=== PATIENT | female | born 1995 | race Caucasian/White ===

== ENCOUNTER 2019-12-22 21:26 | Emergency (ER) | payer OTHER ==
[~2019-12-22] VITALS: Ht 172.7 cm; Wt 121.7 kg
--- NOTE | 2019-12-22 22:35 | RAD ---
AP portable chest radiograph 12/22/2019 Clinical History: Chest pain. An AP erect portable digital radiograph of the chest was obtained. The cardiac and mediastinal silhouettes are within normal limits in size and configuration. No pulmonary infiltrate is seen. No pleural effusion or pneumothorax is noted. The osseous structures are grossly intact. IMPRESSION: Negative study. Electronically signed by: Clark Harper MD (12/22/2019 10:32 PM) [id number]
[2019-12-22 22:45] LABS: BASO # 0.1 x10^3/uL (0.0-0.2); BASO % 1 % (0-3); EOS # 0.1 x10^3/uL (0.0-0.7); EOS % 2 % (0-3); HEMATOCRIT 38.2 % (36.0-47.0); HEMOGLOBIN 12.2 g/dL (12.0-15.5); LYMPH # 3.2 x10^3/uL (1.0-4.8); LYMPH % 38 % (24-48); MEAN CORPUSCULAR HEMOGLOBIN 30 pg (25-35); MEAN CORPUSCULAR HGB CONC 32 g/dL (31-37); MEAN CORPUSCULAR VOLUME 93 fL (79-100); MONO # 0.5 x10^3/uL (0.0-1.1); MONO % 6 % (0-9); NEUT # 4.5 x10^3uL (1.8-7.7); NEUT % 54 % (31-73); PLATELET COUNT 311 x10^3/uL (140-400); RED BLOOD COUNT 4.12 x10^6/uL (3.50-5.40); RED CELL DISTRIBUTION WIDTH 13.9 % (11.5-14.5); WHITE BLOOD COUNT 8.4 x10^3/uL (4.0-11.0)
[2019-12-22 22:48] LABS: CREATININE 0.8 mg/dL (0.6-1.0); GFR 88.9; POTASSIUM 3.6 mmol/L (3.5-5.1)
[2019-12-22 22:58] LABS: ALBUMIN 3.7 g/dL (3.4-5.0); TOTAL BILIRUBIN 0.4 mg/dL (0.2-1.0); TOTAL PROTEIN 7.4 g/dL (6.4-8.2)
--- NOTE | 2019-12-22 22:58 | PHYS DOC ---
Adult General Chief Complaint Chief Complaint: CHEST PAIN [facility] HPI Patient is a 24-year-old female who presents to the emergency room complaining of chest pain for several months with several other symptoms. A year ago patient was diagnosed with pericarditis. She has not followed up with anybody for this in quite some time. She has been having bloating, burping, and the metallic taste in the back of her mouth. She is also been having chest burning and pressure. Chest pain is constant and unchanged. She is currently going through divorce and has a lot of stress. She states she is unable to see her primary care doctor due to insurance issues. She denies any sweating, nausea, s hortness of breath, cough, URI symptoms. Review of Systems Review of Systems Complete ROS is negative unless otherwise documented in HPI Physical Exam Physical Exam General: Awake, alert, NAD. Well Nourished, well hydrated. Cooperative HEENT: Atraumatic, EOMI, PERRL, airway patent, moist oral mucosa Neck: Supple, trachea midline Respiratory: CTA bilaterally, normal effort, no wheezing/crackles CV: RRR, no murmur, cap refill <2 GI: Soft, nondistended, nontender, no masses MSK: No obvious deformities Skin: Warm, dry, intact Neuro: A&O x3, speech NL, sensory and motor grossly intact, no focal deficits Psych: Normal affect, normal mood, not suicidal or homicidal Current Patient Data Lab Results Laboratory Tests Test 12/22/19 21:48 12/22/19 22:09 White Blood Count 8.4 x10^3/uL (4.0-11.0) Red Blood Count 4.12 x10^6/uL (3.50-5.40) Hemoglobin 12.2 g/dL (12.0-15.5) Hematocrit 38.2 % (36.0-47.0) Mean Corpuscular Volume 93 fL (79-100) Mean Corpuscular Hemoglobin 30 pg (25-35) Mean Corpuscular Hemoglobin Concent 32 g/dL (31-37) Red Cell Distribution Width 13.9 % (11.5-14.5) Platelet Count 311 x10^3/uL (140-400) Neutrophils (%) (Auto) 54 % (31-73) Lymphocytes (%) (Auto) 38 % (24-48) Monocytes (%) (Auto) 6 % (0-9) Eosinophils (%) (Auto) 2 % (0-3) Basophils (%) (Auto) 1 % (0-3) Neutrophils # (Auto) 4.5 x10^3uL (1.8-7.7) Lymphocytes # (Auto) 3.2 x10^3/uL (1.0-4.8) Monocytes # (Auto) 0.5 x10^3/uL (0.0-1.1) Eosinophils # (Auto) 0.1 x10^3/uL (0.0-0.7) Basophils # (Auto) 0.1 x10^3/uL (0.0-0.2) Sodium Level 141 mmol/L (136-145) Potassium Level 3.6 mmol/L (3.5-5.1) Chloride Level 105 mmol/L (98-107) Carbon Dioxide Level 28 mmol/L (21-32) Anion Gap 8 (6-14) Blood Urea Nitrogen 11 mg/dL (7-20) Creatinine 0.8 mg/dL (0.6-1.0) Estimated GFR (Cockcroft-Gault) 88.9 BUN/Creatinine Ratio 14 (6-20) Glucose Level 90 mg/dL (70-99) Calcium Level 9.0 mg/dL (8.5-10.1) Total Bilirubin Pending Aspartate Amino Transferase (AST) Pending Alanine Aminotransferase (ALT) Pending Alkaline Phosphatase Pending NU-Tnw-N-Type Natriuretic Peptide Pending Total Protein Pending Albumin Pending Albumin/Globulin Ratio Pending POC Urine HCG, Qualitative hcg negative (Negative) EKG EKG [] Radiology/Procedures Radiology/Procedures [] Heart Score Risk Factors: Risk Factors: DM, Current or recent (<one month) smoker, HTN, HLP, family history of CAD, obesity. Risk Scores: Risk Factors: DM, Current or recent (<one month) smoker, HTN, HLP, family history of CAD, obesity. Course & Med Decision Making Course & Med Decision Making Pertinent Labs and Imaging studies reviewed. (See chart for details) Patient is a 24-year-old female presents to the emergency room with several months of chest pain, bloating, burping. Patient's abdominal symptoms are consistent with reflux. We will start her on treatment for this. Work-up was ordered to evaluate for any cardiac pathology and was normal. Patient does not have any signs of a STEMI at this time. She does not have any signs of pericarditis. I have discussed with her that she can follow-up with a program clinician however her insurance will not allow her to do this at this time. She does not need a delta troponin as this is been ongoing for several months. She is generally well-appearing. Patient's test results and vitals while in the ED were fully reviewed and discussed with the patient. Patient is stable and at this time does not need admission to the hospital. We have discussed strict return precautions and the importance of following up with their Primary Care Physician. Patient stated understanding and was given an opportunity to ask any questions. Patient is in agreement with plan. Dragon Disclaimer Anitra Disclaimer This electronic medical record was generated, in whole or in part, using a voice recognition dictation system. Departure Departure: Impression: Primary Impression: Chest pain Additional Impression: GERD (gastroesophageal reflux disease) Disposition: 01 DC HOME SELF CARE/HOMELESS Condition: STABLE Referrals: PCP,NO (PCP) Patient Instructions: Chest Pain (Nonspecific), Diet for Gastroesophageal Reflux Disease, Adult, Gastroesophageal Reflux Disease, Adult Scripts Sucralfate (CARAFATE) 1 Gm Tablet 1 TAB PO QID for GERD for 10 Days, #40 TAB 0 Refills Prov: MAXIMO MCMULLEN MD 12/22/19 Esomeprazole Magnesium (NEXIUM CAPSULE) 40 Mg Capsule. 1 CAP PO DAILY for reflux, #30 CAP 5 Refills Prov: MAXIMO MCMULLEN MD 12/22/19 Problem Qualifiers MAXIMO MCMULLEN MD Dec 22, 2019 22:58
[2019-12-22] MEDS ORDERED: ESOM40CA PO (23:14)
[2019-12-22] MEDS ORDERED: SUCR1TAB35 PO (23:14)
[2019-12-23 00:15] VITALS: BP 148/81
--- NOTE | 2019-12-23 04:31 | EKG ---
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
== END 2019-12-22 23:25 | disposition home or self-care (01) ==
LOC: ER 21:26
DX: K21.9 Gastro-esophageal reflux disease without esophagitis (principal); R07.89 Other chest pain
CPT/HCPCS: 36415; 71045; 80053; 81025; 83880; 84484; 85025; 93005; 99285

== ENCOUNTER 2020-03-06 09:37 | Emergency (ER) | payer OTHER ==
[~2020-03-06] VITALS: Ht 172.7 cm; Wt 114.0 kg
[~2020-03-06 09:37] MED LIST: ESOM40CA PO; SUCR1TAB35 PO
--- NOTE | 2020-03-06 10:34 | PHYS DOC ---
Past History Past Medical History: MRSA Additional Past Medical Histor: pericarditis Past Surgical History: No Surgical History Alcohol Use: None General Adult EDM: Chief Complaint: CHEST PAIN HPI: HPI: Patient is a 24-year-old female coming in for intermittent chest pain since yesterday. Patient describes the pain as "the hand of God" reaching into her chest and squeezing her heart. Symptoms last for a couple of minutes and occur every few hours. Patient states that started yesterday while she was at work and was not connected to any p.o. intake, movement, positioning. Says the pain is worse with palpation. Radiates to the back but not to her arms or neck. Has not had this kind of pain in the past. Had a history of GERD and pericarditis within the last year, but states that this does not feel the same as her GERD but is similar to the beginning of her pericarditis. Denies any recent illness, cough, shortness of breath. Had some nausea but no vomiting. Denies any constipation or diarrhea. Has a slight headache was present when she woke up, has a history of similar headaches. Patient states that she took her gastritis medicine for 1 month but discontinued them and adapted lifestyle changes and has not had problems with GERD since. States she is starting her primary care provider and was diagnosed with low vitamin levels and has been started on iron and vitamins. Denies any lower extremity edema or changes in urination. Has not take anything for pain Review of Systems: Review of Systems: All other systems within normal limits except for as noted in the HPI Allergies: Allergies: Allergies Coded Allergies Type Severity Reaction Last Updated Verified No Known Allergies Allergy Unknown 03/06/20 Yes Physical Exam: PE: Constitutional: Well developed, well nourished, no acute distress, non-toxic appearance. [] HENT: Normocephalic, atraumatic, bilateral external ears normal, nose normal. [] Eyes: PERRLA, conjunctiva normal, no discharge. [] Neck: No rigidity, supple, no stridor. [] Cardiovascular: Regular rate and rhythm, brisk cap refill, no murmur or gallop [] Lungs & Thorax: Non labored symmetric respirations, no tachypnea or respiratory distress, breath sounds clear to auscultation bilaterally, tenderness to palpation over sternum [] Abdomen: Soft, nondistended, epigastric tenderness, negative Hernandes sign, no rebound or guarding. Skin: Warm, dry, no erythema, no rash. [] Back: Unremarkable Extremities: No deformities, range of motion grossly intact, no lower extremity edema [] Neurologic: Alert and oriented X 3, no focal deficits noted. [] Psychologic: Affect normal, judgement normal, mood normal. [] Current Patient Data: Vital Signs: Vital Signs Date Time Temp Pulse Resp B/P (MAP) Pulse Ox O2 Delivery O2 Flow Rate FiO2 03/06/20 09:40 98.3 74 16 134/85 (101) 99 Room Air EKG: EKG: Sinus rhythm, normal axis, no ectopy, normal intervals, no ST elevation or depression, T wave inversions in inferior leads [] Radiology/Procedures: Radiology/Procedures: XR CHEST 2V History: Reason: chest pain / Spl. Instructions: / History: Comparison: December 22, 2019 Findings: No consolidation or pleural effusion. Normal heart size. No pneumothorax. Impression: 1. No acute cardiopulmonary process.[] Heart Score: HEART Score for Chest Pain: HEART Score for Chest Pain Response (Comments) Value History Moderately Suspicious 1 ECG Nonspecific Repolarizatio 1 Age < 45 0 Risk Factors No Risk Factors 0 Troponin < Normal Limit 0 Total 2 Risk Factors: Risk Factors: DM, Current or recent (<one month) smoker, HTN, HLP, family history of CAD, obesity. Risk Scores: Score 0 - 3: 2.5% MACE over next 6 weeks - Discharge Home Score 4 - 6: 20.3% MACE over next 6 weeks - Admit for Clinical Observation Score 7 - 10: 72.7% MACE over next 6 weeks - Early Invasive Strategies Course & Med Decision Making: Course & Med Decision Making Pertinent Labs and Imaging studies reviewed. (See chart for details) Discussed possible etiology with patient including esophageal spasm, early pericarditis, musculoskeletal pain among others. Due to slight elevation of CRP will give patient course of steroids in case this is a early pericarditis, no elevation in troponin and no EKG changes consistent with pericarditis at this time. [] Esteron Disclaimer: Anitra Disclaimer: This electronic medical record was generated, in whole or in part, using a voice recognition dictation system. Departure Departure: Impression: Primary Impression: Chest pain in adult Disposition: ADMITTED INPT THIS HOSP Condition: STABLE Referrals: TICKNOR,ALEXIA L [employer] (PCP) Patient Instructions: Chest Pain (Nonspecific) Scripts Prednisone (PREDNISONE) 50 Mg Tablet 1 TAB PO DAILY for steroid for 4 Days, #4 TAB You received this medication in the emergency room today. You will starting your next dose tomorrow. Prov: EBONI ABDUL MD 03/06/20 EBONI ABDUL MD Mar 06, 2020 10:34
--- NOTE | 2020-03-06 10:41 | RAD ---
XR CHEST 2V History: Reason: chest pain / Spl. Instructions: / History: Comparison: December 22, 2019 Findings: No consolidation or pleural effusion. Normal heart size. No pneumothorax. Impression: 1. No acute cardiopulmonary process. Electronically signed by: Jim Welch DO (03/06/2020 10:39 AM) [id number]
[2020-03-06 10:44] LABS: BASO % 1 % (0-3); EOS # 0.1 x10^3/uL (0.0-0.7); EOS % 2 % (0-3); HEMATOCRIT 39.4 % (36.0-47.0); HEMOGLOBIN 12.8 g/dL (12.0-15.5); LYMPH # 1.6 x10^3/uL (1.0-4.8); LYMPH % 28 % (24-48); MEAN CORPUSCULAR HEMOGLOBIN 30 pg (25-35); MEAN CORPUSCULAR HGB CONC 33 g/dL (31-37); MEAN CORPUSCULAR VOLUME 93 fL (79-100); MONO # 0.3 x10^3/uL (0.0-1.1); MONO % 6 % (0-9); NEUT # 3.6 x10^3uL (1.8-7.7); NEUT % 63 % (31-73); PLATELET COUNT 269 x10^3/uL (140-400); RED BLOOD COUNT 4.26 x10^6/uL (3.50-5.40); RED CELL DISTRIBUTION WIDTH 13.8 % (11.5-14.5); WHITE BLOOD COUNT 5.7 x10^3/uL (4.0-11.0)
[2020-03-06 10:50] LABS: CALCIUM 9.2 mg/dL (8.5-10.1); CREATININE 0.7 mg/dL (0.6-1.0); GFR 103.7; POTASSIUM 3.9 mmol/L (3.5-5.1)
[2020-03-06 10:56] LABS: ALBUMIN 3.6 g/dL (3.4-5.0); ALBUMIN/GLOBULIN RATIO 0.9 (1.0-1.7); C REACTIVE PROTEIN 9.3 mg/L (0-3.3); MAGNESIUM 1.8 mg/dL (1.8-2.4); TOTAL BILIRUBIN 1.2 mg/dL (0.2-1.0); TOTAL PROTEIN 7.4 g/dL (6.4-8.2)
[2020-03-06 11:40] LABS: BILIRUBIN,URINE NEG (NEG); CLARITY,URINE CLEAR; COLOR,URINE STRAW; GLUCOSE,URINE NEG (NEG); NITRITE,URINE NEG (NEG); UROBILINOGEN,URINE 0.2 mg/dL (0.2 mg/dL)
[2020-03-06 11:44] LABS: BACTERIA,URINE FEW /HPF (0-FEW); RBC,URINE RARE /HPF (0-2); SQUAMOUS EPITHELIAL CELL,UR FEW /LPF; WBC,URINE RARE /HPF (0-4)
[2020-03-06] MEDS ORDERED: PRED50TA PO (12:24)
[2020-03-06] MEDS ORDERED: predniSONE 10 MG TABLET ONE (12:28)
[2020-03-06 12:30] VITALS: BP 123/80
[2020-03-06] MEDS ORDERED: predniSONE 10 MG TABLET PO ONE (12:30)
--- NOTE | 2020-03-06 15:13 | EKG ---
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
== END 2020-03-06 12:45 | disposition admitted as inpatient to this hospital (09) ==
LOC: ER 09:37
DX: R07.89 Other chest pain (principal); R51.9 Headache, unspecified; R10.13 Epigastric pain; K21.9 Gastro-esophageal reflux disease without esophagitis; Z86.14 Personal history of Methicillin resistant Staphylococcus aureus infection
CPT/HCPCS: 36415; 71046; 80053; 81001; 81025; 83690; 83735; 84484; 85025; 85379; 86140; 93005; 99285; J7512

== ENCOUNTER 2020-04-03 22:53 | Emergency (ER) | payer OTHER ==
[~2020-04-03] VITALS: Ht 167.6 cm; Wt 113.2 kg
[2020-04-03 22:53] VITALS: BP 149/93
[~2020-04-03 22:53] MED LIST changes: +PRED50TA PO
[2020-04-03] MEDS ORDERED: ONDANSETRON ODT 4 MG TAB.RAPDIS ONE (22:59)
--- NOTE | 2020-04-03 23:14 | PHYS DOC ---
Past History Past Medical History: MRSA Additional Past Medical Histor: pericarditis Past Surgical History: No Surgical History Alcohol Use: None Adult General Chief Complaint Chief Complaint: NAUSEA/VOMITING/DIARRHEA HPI HPI Patient is an otherwise healthy 24-year-old female, in the who presents with a chief complaint of nausea vomiting. States that 2 days ago she saw her primary care physician and was diagnosed with a urinary tract infection and started on nitrofurantoin. States that since then it appears to have upset her stomach and today shortly after taking a dose she had nonbloody nonbilious vomiting. States that her last dose was about 5 hours ago and has not thrown up in about 4 hours. States she otherwise feels well now. Denies any headache, fevers, chest pain, shortness of breath, abdominal pain, dysuria, hematuria, diarrhea or blood in the stool. Denies any alcohol or drug use. Denies any recent travel, illnesses, fevers or known ill contacts. Review of Systems Review of Systems Review of systems otherwise unremarkable except noted in HPI Current Medications Current Medications Current Medications Medications (Trade) Dose Ordered Sig/Lakia Start Time Stop Time Status Last Admin Dose Admin Ondansetron HCl (Zofran Odt) 4 mg STK-MED ONCE 04/03/20 22:59 04/03/20 22:59 DC Allergies Allergies Allergies Coded Allergies Type Severity Reaction Last Updated Verified No Known Allergies Allergy Unknown 03/06/20 Yes Physical Exam Physical Exam Constitutional: Well developed, well nourished, no acute distress, non-toxic appearance. [] HENT: Normocephalic, atraumatic, bilateral external ears normal, oropharynx moist, no oral exudates, nose normal. [] Eyes: conjunctiva normal, no discharge. [] Cardiovascular:Heart rate regular rhythm, no murmur [] Lungs & Thorax: Bilateral breath sounds clear to auscultation [] Abdomen: soft, no tenderness, no masses, no pulsatile masses. [] Skin: Warm, dry, no erythema, no rash. [] Back: no CVA tenderness. [] Extremities: No tenderness, no cyanosis, no clubbing, ROM intact, no edema. [] Neurologic: Alert and oriented X 3, normal motor function, normal sensory function, no focal deficits noted. [] Psychologic: Affect normal, judgement normal, mood normal. [] EKG EKG [] Radiology/Procedures Radiology/Procedures [] Heart Score Risk Factors: Risk Factors: DM, Current or recent (<one month) smoker, HTN, HLP, family history of CAD, obesity. Risk Scores: Risk Factors: DM, Current or recent (<one month) smoker, HTN, HLP, family history of CAD, obesity. Course & Med Decision Making Course & Med Decision Making Patient is a 24-year-old female who presents with nausea and vomiting after st arting a course of nitrofurantoin for a urinary tract infection Vital signs not concerning. Physical exam noted above. Advised patient to cease nitrofurantoin and switch to cephalexin. Urinalysis not concerning, but most likely due to coverage for nitrofurantoin. Advised to continue Keflex as prescribed. Advised to call primary care physician first thing in the morning to set up a follow-up visit for urinalysis. Gave strict return precautions to the ED. Patient grateful, verbalized understanding and agreed with plan of discharge. [] Dragon Disclaimer Dragon Disclaimer This electronic medical record was generated, in whole or in part, using a voice recognition dictation system. Departure Departure: Impression: Primary Impression: UTI (urinary tract infection) Additional Impression: Nausea & vomiting Disposition: 01 DC HOME SELF CARE/HOMELESS Condition: GOOD Referrals: BETHANIE PUENTE-OZ (PCP) Patient Instructions: Nausea and Vomiting, [id number], Urinary Tract Infection Additional Instructions: Please read all the attached information. Please continue your new antibiotic as prescribed. Please cease taking the oral antibiotic. Please try to eat and drink normally. Please call your primary care physician first thing tomorrow to update on your ED visit and change in antibiotics. Please set up a follow-up visit with your primary care physician as soon as you can. Please come back to the ED with new or concerning symptoms. Scripts Cephalexin (CEPHALEXIN) 500 Mg Capsule 1 CAP PO TID for uti for 5 Days, #15 CAP Prov: CT PALOMINO MD 04/03/[address] PALOMINO MD Apr 03, 2020 23:14
[2020-04-03] MEDS ORDERED: ONDANSETRON ODT 4 MG TAB.RAPDIS PO ONE (23:15)
[2020-04-03 23:29] LABS: BILIRUBIN,URINE NEG (NEG); CLARITY,URINE CLEAR; COLOR,URINE YELLOW; GLUCOSE,URINE NEG (NEG); NITRITE,URINE NEG (NEG); RBC,URINE 0 /HPF (0-2); UROBILINOGEN,URINE 0.2 mg/dL (0.2 mg/dL)
[2020-04-03 23:30] LABS: BACTERIA,URINE 0 /HPF (0-FEW); SQUAMOUS EPITHELIAL CELL,UR FEW /LPF; WBC,URINE RARE /HPF (0-4)
[2020-04-03] MEDS ORDERED: CEPH500C PO (23:41)
[2020-04-03] MEDS ORDERED: CEPHALEXIN 250 MG CAPSULE PO ONE (23:45)
[2020-04-03] MEDS ORDERED: CEPHALEXIN 250 MG CAPSULE ONE (23:46)
== END 2020-04-03 23:48 | disposition home or self-care (01) ==
LOC: ER 22:53
DX: N39.0 Urinary tract infection, site not specified (principal); R11.2 Nausea with vomiting, unspecified; Z86.14 Personal history of Methicillin resistant Staphylococcus aureus infection
CPT/HCPCS: 81001; 81025; 99283; Q0162

== ENCOUNTER 2020-04-07 13:09 | Emergency (ER) | payer OTHER ==
[~2020-04-07] VITALS: Ht 167.6 cm; Wt 113.2 kg
[~2020-04-07 13:09] MED LIST changes: +CEPH500C PO
[2020-04-07 13:42] VITALS: BP 128/80
--- NOTE | 2020-04-07 14:34 | PHYS DOC ---
Past History Past Medical History: Other Additional Past Medical Histor: pericarditis, bradycardia Past Surgical History: No Surgical History Alcohol Use: None General Adult EDM: Chief Complaint: DIFFICULTY SWALLOWING HPI: HPI: Patient is a 24-year-old female who presents with difficulty with swallowing. Patient states that she was seen at [facility] and diagnosed with esophagitis and started on Pepcid. Patient denies nausea/vomiting. States "it feels like it is hard to swallow but I am able to keep my food and liquids down". Patient also reporting left neck tenderness. "I think I slept weird, it feels like a pulled muscle". Patient does report a dry cough. Patient states "I do not want a GI cocktail". "I feel like it gave me more trouble swallowing". Review of Systems: Review of Systems: Constitutional: Denies fever or chills Eyes: Denies change in visual acuity HENT: Denies nasal congestion or sore throat Respiratory: Reports dry cough denies shortness of breath Cardiovascular: Denies chest pain or edema GI: Denies abdominal pain, nausea, vomiting, bloody stools or diarrhea : Denies dysuria Musculoskeletal: Denies back pain or joint pain Integument: Denies rash Neurologic: Denies headache, focal weakness or sensory changes Endocrine: Denies polyuria or polydipsia Lymphatic: Denies swollen glands Psychiatric: Denies depression or anxiety Allergies: Allergies: Allergies Coded Allergies Type Severity Reaction Last Updated Verified No Known Allergies Allergy Unknown 03/06/20 Yes Physical Exam: PE: Constitutional: Well developed, well nourished, no acute distress, non-toxic appearance. [] HENT: Normocephalic, atraumatic, bilateral external ears normal, oropharynx moist, no oral exudates, nose normal. [] Eyes: PERRLA, EOMI, conjunctiva normal, no discharge. [] Neck: Normal range of motion Cardiovascular:Heart rate regular rhythm, no murmur [] Lungs & Thorax: Bilateral breath sounds clear to auscultation [] Abdomen: Bowel sounds normal, soft, no tenderness, no masses, no pulsatile masses. [] Skin: Warm, dry, no erythema, no rash. [] Back: No tenderness, no CVA tenderness. [] Extremities: Left-sided tenderness, no cyanosis, no clubbing, ROM intact, no edema. [] Neurologic: Alert and oriented X 3, normal motor function, normal sensory function, no focal deficits noted. [] Psychologic: Affect normal, judgement normal, mood normal. [] Current Patient Data: Vital Signs: Vital Signs Date Time Temp Pulse Resp B/P (MAP) Pulse Ox O2 Delivery O2 Flow Rate FiO2 04/07/20 13:42 97.6 88 16 128/80 (96) 99 Room Air EKG: EKG: [] Radiology/Procedures: Radiology/Procedures: [] Heart Score: Risk Factors: Risk Factors: DM, Current or recent (<one month) smoker, HTN, HLP, family histo ry of CAD, obesity. Risk Scores: Score 0 - 3: 2.5% MACE over next 6 weeks - Discharge Home Score 4 - 6: 20.3% MACE over next 6 weeks - Admit for Clinical Observation Score 7 - 10: 72.7% MACE over next 6 weeks - Early Invasive Strategies Course & Med Decision Making: Course & Med Decision Making Pertinent Labs and Imaging studies reviewed. (See chart for details) []Patient is a 24-year-old female who presents with difficulty with swallowing. Patient states that she was seen at [facility] and diagnosed with esophagitis and started on Pepcid. Patient denies nausea/vomiting. States "it feels like it is hard to swallow but I am able to keep my food and liquids down". Patient also reporting left neck tenderness. "I think I slept weird, it feels like a pulled muscle". Patient does report a dry cough. Patient states "I do not want a GI cocktail". "I feel like it gave me more trouble swallowing". Patient given Toradol for muscle pain. Patient is refusing GI cocktail. "I do not like it". Patient instructed to follow-up with PCP regarding acid reflux and medication management. Patient given instructions on lifestyle changes. Explained to patient she may need to follow-up with GI. Patient is hemody namically stable. And able to ambulate on her own. Dragon Disclaimer: Anitra Disclaimer: This electronic medical record was generated, in whole or in part, using a voice recognition dictation system. Departure Departure: Impression: Primary Impression: GERD (gastroesophageal reflux disease) Qualified Codes: K21.00 - Gastro-esophageal reflux disease with esophagitis, without bleeding Disposition: 01 DC HOME SELF CARE/HOMELESS Condition: STABLE Referrals: BETHANIE PUENTE (PCP) Patient Instructions: Esophagitis Additional Instructions: You were seen in the emergency room for esophagitis and Pepcid not working properly. Continue taking Pepcid that was prescribed. Make sure that you are eating small, frequent meals. Try to avoid eating within 2 or 3 hours before bedtime. You may also sleep with pillows to raise your head at nighttime to help avoid acid reflux. Also avoid chocolate, caffeine, alcohol, spicy foods, fatty foods and mint. Please call your PCP to set up an appointment for further management and possibly a GI referral. Return to the emergency room for worsening symptoms or concerns please EMERGENCY DEPARTMENT GENERAL DISCHARGE INSTRUCTIONS Thank you for coming to [facility] (ED) today and trusting us with you care. We trust that you had a positivie experience in our Emergency Department. If you wish to speak to the department management, you may call the director at [phone]. YOUR FOLLOW UP INSTRUCTIONS ARE FOLLOWS: 1. Do you have a private Doctor? If you do not have a private doctor, please ask for a resource list of physicians or clinics that may be able to assist you with follow up care. 2. The Emergency Physician has interpreted your x-rays. The X-Ray specialist will also review them. If there is a change in the findings, you will be notified in 48 hours when at all possible. 3. A lab test or culture has been done, your results will be reviewed and you will be notified if you need a change in treatment. ADDITIONAL INSTRUCTIONS AND INFORMATION: 1. Your care today has been supervised by a physician who is specially trained in emergency care. Many problems require more than one evaluation for a complete diagnosis and treatment. We recommend that you schedule your follow up appointment as recommended to ensure complete treatment of you illness or injury. If you are unable to obtain follow up care and continue to have a problem, or if your condition worsens, we recommend that you return to the ED. 2. We are not able to safely determine your condition over the phone nor are we able to give sound medical advice over the phone. For these safety reasons, if you call for medical advice we will ask you to come to the ED for further evaluation. 3. If you have any questions regarding these discharge instructions please call the ED at [phone]. SAFETY INFORMATION: In the interest of safety, wellness, and injury prevention; we encourage you to wear your sealbelt, if you smoke; quite smoking, and we encourage family to use a protective helmet for bicycling and other sporting events that present an increased risk for head injury. IF YOUR SYMPTOMS WORSEN OR NEW SYMPTOMS DEVELOP, OR YOU HAVE CONCERNS ABOUT YOUR CONDITION; OR IF YOUR CONDITION WORSENS WHILE YOU ARE WAITING FOR YOUR FOLLOW UP APPOINT MENT; EITHER CONTACT YOUR PRIMARY CARE DOCTOR, THE PHYSICIAN WHOSE NAME AND NUMBER YOU WERE GIVEN, OR RETURN TO THE ED IMMEDIATELY. KORI COON APRN Apr 07, 2020 14:34
[2020-04-07] MEDS ORDERED: KETOROLAC 15 MG/ML VIAL. IM ONE (15:15)
[2020-04-07] MEDS ORDERED: KETOROLAC 15 MG/ML VIAL. ONE (15:19)
== END 2020-04-07 15:28 | disposition home or self-care (01) ==
LOC: ER 13:09
DX: K21.00 Gastro-esophageal reflux disease with esophagitis, without bleeding (principal); R05 Cough
CPT/HCPCS: 96372; 99283; J1885

== ENCOUNTER 2020-07-26 16:10 | Emergency (ER) | payer OTHER ==
[~2020-07-26] VITALS: Ht 185.4 cm; Wt 110.9 kg
[2020-07-26 16:22] VITALS: BP 129/80
--- NOTE | 2020-07-26 16:36 | PHYS DOC ---
Past History Past Medical History: GERD, Other Additional Past Medical Histor: pericarditis, bradycardia Past Surgical History: No Surgical History Smoking: Non-smoker Alcohol Use: None Drug Use: None General Adult EDM: Chief Complaint: KNEE INJURY HPI: HPI: 25-year-old female presents with report of left knee pain after trip and fall yesterday while at work. Patient reports occurred at approximately 0900 yester day morning. Patient reports she banged her knee into a "metal table "and then fell to the ground directly onto knee. Patient reports she felt a "crunch ". Patient reports pain with range of motion especially when going up the stairs. Denies prior injury to the knee. Denies swelling or bruising. Denies other injury. Denies . Patient reports last menstrual period 07/12/20. Review of Systems: Review of Systems: Constitutional: Denies fever or chills Musculoskeletal: Denies back pain; reports left knee pain Integument: Denies rash, laceration, bruising, or skin lesions Neurologic: Denies headache, focal weakness or sensory changes Complete systems were reviewed and found to be within normal limits, except as d ocumented in this note. Allergies: Allergies: Allergies Coded Allergies Type Severity Reaction Last Updated Verified No Known Allergies Allergy Unknown 03/06/20 Yes Physical Exam: PE: Constitutional: Well developed, well nourished, no acute distress, non-toxic appearance HENT: Normocephalic, atraumatic Eyes: Conjunctiva normal, no discharge Neck: Normal range of motion, supple Lungs & Thorax: No respiratory distress, equal chest rise and fall Skin: Warm, dry, no erythema, no rash Extremities: Left anterior knee tenderness, ROM intact, no edema ,anterior drawer negative, joint appears stable Neurologic: Alert and oriented X 3, no focal deficits noted Psychologic: Affect normal, judgment normal EKG: EKG: [] Radiology/Procedures: Radiology/Procedures: PROCEDURE: KNEE LEFT 3V EXAM: AP, lateral and oblique views of the left knee DATE: 07/26/2020 4:32 PM INDICATION: Reason: PAIN AFTER INJURY / Spl. Instructions: / History: COMPARISON: No Prior FINDINGS: No acute fracture or dislocation. No joint effusion. Joint spaces are preserved without significant degenerative/proliferative change. IMPRESSION: No acute fracture or dislocation. Electronically signed by: Bruno Navas MD (07/26/2020 4:35 PM) [facility] Heart Score: C/O Chest Pain: N/A Course & Med Decision Making: Course & Med Decision Making Pertinent Imaging studies reviewed. (See chart for details) Patient presents with left knee pain after mechanical fall yesterday while at work. Patient reports worse with range of motion especially going up stairs. Joint appears stable. X-ray obtained without acute fracture or dislocation. Symptomatic treatment provided with ice pack and Al wrap. Crutches provided for rest. Patient educated on RICE. Offered ibuprofen which patient declined. Patient stable for discharge with outpatient follow-up with PCP/Workmen's Comp./orthopedics. Orthopedic referral provided. Discussed findings and plan with patient and friend, who acknowledge understanding and agreement. Of note patient requesting work note. A work note for 07/26/20 - 07/28/20 provided. Patient instructed to follow with her PCP, workman's comp, and /or orthopedics for further work release. Anitra Disclaimer: Anitra Disclaimer: This electronic medical record was generated, in whole or in part, using a voice recognition dictation system. Splinting Splinting : Location: Left knee Pre-Made Type: AL bandage Pre-Proc Neuro Vasc Exam: normal Post-Proc Neuro Vasc Exam: normal, unchanged from pre-exam Departure Departure: Impression: Primary Impression: Contusion of left knee Qualified Codes: S80.02XA - Contusion of left knee, initial encounter Disposition: HOME / SELF CARE / HOMELESS Condition: STABLE Referrals: BETHANIE PUENTE PULPIT OPERATOR-BC (PCP) HIRA RODRIGUEZ MD Patient Instructions: Contusion, Fool-jn-[id number], Crutch Use, Dyuv-an-Gnbg, Knee Pain, [id number], Knee Wraps (Elastic Bandage) and RICE Additional Instructions: ICE area of discomfort 20 min on then leave off next 20 min. Repeat several times for next few days as needed. Use over the counter Tylenol and/or Ibuprofen for pain or discomfort. MICHELLE CASTELLANO DO Jul 26, 2020 16:36
== END 2020-07-26 17:14 | disposition home or self-care (01) ==
LOC: ER 16:10
DX: S80.02XA Contusion of left knee, initial encounter (principal); K21.9 Gastro-esophageal reflux disease without esophagitis; W01.0XXA Fall on same level from slipping, tripping and stumbling without subsequent striking against object, initial encounter; Y93.89 Activity, other specified; Y92.89 Other specified places as the place of occurrence of the external cause; Y99.8 Other external cause status
CPT/HCPCS: 73562; 99283

== ENCOUNTER 2020-08-07 18:50 | Emergency (ER) | payer OTHER ==
[~2020-08-07] VITALS: Ht 185.4 cm; Wt 110.9 kg
--- NOTE | 2020-08-07 21:28 | PHYS DOC ---
Past History Past Medical History: GERD, Other Additional Past Medical Histor: pericarditis, bradycardia, MRSA, low iron levels Past Surgical History: No Surgical History Smoking: Non-smoker Alcohol Use: None Drug Use: None General Adult EDM: Chief Complaint: LOWER EXTREMITY SWELLING HPI: HPI: " I worried I have DVT... it runs in my family... they all have varicosities.. Patient is a 25 year old female dependent who presents with above hx and concerns has DVT. Patient has an area on right calf that appears to be superficial varicosity. Patient has other spider varicosities. There is no cording appreciated. Patient does not smoke. Patient extremely anxious about the possibility of DVT. Patient denies any trauma to this right lower leg. No history of prior DVT or coagulopathy with this patient but there is a strong family history. Etiology of family members coagulopathy is not known. Patient has had history of pericarditis, bradycardia, GERD, and mild obesity. Patient denies any recent travel. No significant ill contacts. Normally follows at [facility]. Review of Systems: Review of Systems: Constitutional: Denies fever or chills Eyes: Denies change in visual acuity HENT: Denies nasal congestion or sore throat Respiratory: Denies cough or shortness of breath Cardiovascular: Denies chest pain or edema GI: Denies abdominal pain, nausea, vomiting, bloody stools or diarrhea : Denies dysuria Musculoskeletal: Complains of area right lower leg edema and tenderness at a varicosity Integument: Denies rash Neurologic: Denies headache, focal weakness or sensory changes Endocrine: Denies polyuria or polydipsia Lymphatic: Denies swollen glands Psychiatric: Denies depression or anxiety Family History: Family History: Multiple family members have had pulmonary embolisms and DVTs Current Medications: Current Meds: See nursing for home meds Allergies: Allergies: Allergies Coded Allergies Type Severity Reaction Last Updated Verified No Known Allergies Allergy Unknown 03/06/20 Yes Physical Exam: PE: Constitutional: , no acute distress, non-toxic appearance. [] HENT: Normocephalic, atraumatic, bilateral external ears normal, oropharynx moist, no oral exudates, nose normal. [] Eyes: PERRLA, EOMI, conjunctiva normal, no discharge. [] Neck: Normal range of motion, no tenderness, supple, no stridor. [] Cardiovascular:Heart rate regular rhythm, no murmur [] Lungs & Thorax: Bilateral breath sounds equal apex on auscultation [] Abdomen: Bowel sounds normal, soft, no tenderness, no masses, no pulsatile masses. Obese. Skin: Warm, dry, no erythema, no rash. [] Back: No tenderness, no CVA tenderness. [] Extremities: No tenderness, no cyanosis, no clubbing, ROM intact, no edema. Does has spider varicosities and other small varicosities. Patient is concerned about a tender varicosity that is very superficial on right calf. Does not have any deep cording appreciated. Neurologic: Alert and oriented X 3, normal motor function, normal sensory function, no focal deficits noted. [] Psychologic: Affect anxious, judgement normal, mood normal. [] Current Patient Data: Labs: Laboratory Tests Test 08/07/20 21:15 POC Urine HCG, Qualitative hcg negative (Negative) Vital Signs: Vital Signs Date Time Temp Pulse Resp B/P (MAP) Pulse Ox O2 Delivery O2 Flow Rate FiO2 08/07/20 19:37 98.6 79 18 163/84 (110) 100 Room Air EKG: EKG: [] Radiology/Procedures: Radiology/Procedures: Patient does have follow-up ultrasound of legs after follow-up at [facility] on Saturday [] Heart Score: C/O Chest Pain: N/A Risk Factors: Risk Factors: DM, Current or recent (<one month) smoker, HTN, HLP, family history of CAD, obesity. Risk Scores: Score 0 - 3: 2.5% MACE over next 6 weeks - Discharge Home Score 4 - 6: 20.3% MACE over next 6 weeks - Admit for Clinical Observation Score 7 - 10: 72.7% MACE over next 6 weeks - Early Invasive Strategies Course & Med Decision Making: Course & Med Decision Making Pertinent Labs and Imaging studies reviewed. (See chart for details) Patient keep follow-up [facility]. Patient in pain ultrasound of right lower leg on Saturday. Patient however declined Eliquis treatment here in the emergency room tonight. But was given a prescription for Eliquis 10 mg twice a day. To follow-up necessary. Do feel that this varicosity is somewhat very low risk for DVT. But did have slightly positive D-dimer 0.54. Patient increase high potassium foods and fruit juices. To supplement of borderline potassium. Return if any concerns. Impression: 1. Superficial varicosity right calf 2. Mild hypokalemia 3.3 [] Dragon Disclaimer: Dragon Disclaimer: This electronic medical record was generated, in whole or in part, using a voice recognition dictation system. Departure Departure: Referrals: BETHANIE PUENTE-BC (PCP) Scripts Apixaban (ELIQUIS) 5 Mg Tablet 10 MG PO BID for DVT for 7 Days, #28 TAB Prov: ZACHARY AGUILA MD 08/08/20 Anitra Disclaimer This chart was dictated in whole or in part using Voice Recognition software in a busy, high-work load, and often noisy Emergency Department environment. It may contain unintended and wholly unrecognized errors or omissions. ZACHARY AGUILA MD Aug 07, 2020 21:28
[2020-08-07 21:58] LABS: BASO # 0.1 x10^3/uL (0.0-0.2); BASO % 1 % (0-3); EOS # 0.1 x10^3/uL (0.0-0.7); EOS % 1 % (0-3); HEMATOCRIT 38.9 % (36.0-47.0); LYMPH # 3.6 x10^3/uL (1.0-4.8); LYMPH % 36 % (24-48); MEAN CORPUSCULAR HEMOGLOBIN 31 pg (25-35); MEAN CORPUSCULAR HGB CONC 34 g/dL (31-37); MEAN CORPUSCULAR VOLUME 93 fL (79-100); MONO # 0.4 x10^3/uL (0.0-1.1); MONO % 4 % (0-9); NEUT % 58 % (31-73); PLATELET COUNT 314 x10^3/uL (140-400); RED BLOOD COUNT 4.17 x10^6/uL (3.50-5.40); RED CELL DISTRIBUTION WIDTH 13.8 % (11.5-14.5); WHITE BLOOD COUNT 10.2 x10^3/uL (4.0-11.0)
[2020-08-07 22:08] LABS: ALBUMIN 3.9 g/dL (3.4-5.0); ALBUMIN/GLOBULIN RATIO 0.9 (1.0-1.7); CALCIUM 9.2 mg/dL (8.5-10.1); CREATININE 0.7 mg/dL (0.6-1.0); GFR 102.8; POTASSIUM 3.3 mmol/L (3.5-5.1); TOTAL BILIRUBIN 0.8 mg/dL (0.2-1.0); TOTAL PROTEIN 8.1 g/dL (6.4-8.2)
[2020-08-07 22:10] LABS: BILIRUBIN,URINE NEG (NEG); CLARITY,URINE CLEAR; COLOR,URINE YELLOW; GLUCOSE,URINE NEG (NEG)
[2020-08-07 22:11] LABS: NITRITE,URINE NEG (NEG); UROBILINOGEN,URINE 0.2 mg/dL (0.2 mg/dL)
[2020-08-07 22:13] LABS: BACTERIA,URINE FEW /HPF (0-FEW); RBC,URINE OCC /HPF (0-2); SQUAMOUS EPITHELIAL CELL,UR OCC /LPF; WBC,URINE OCC /HPF (0-4)
[2020-08-08] MEDS ORDERED: APIXABAN 5 MG TABLET. PO ONE (00:30)
[2020-08-08] MEDS ORDERED: APIX5TAB3 PO (00:31)
[2020-08-08 00:44] VITALS: BP 144/85
== END 2020-08-08 00:44 | disposition home or self-care (01) ==
LOC: ER 18:50
DX: I83.891 Varicose veins of right lower extremity with other complications (principal); E87.6 Hypokalemia; K21.9 Gastro-esophageal reflux disease without esophagitis
CPT/HCPCS: 36415; 80053; 81001; 81025; 85025; 85379; 99285-25

== ENCOUNTER 2020-09-28 21:25 | Emergency (ER) | payer OTHER ==
[~2020-09-28] VITALS: Ht 154.9 cm; Wt 110.9 kg
[~2020-09-28 21:25] MED LIST changes: +APIX5TAB3 PO
[2020-09-28 21:40] VITALS: BP 119/80
[2020-09-28] MEDS ORDERED: KETOROLAC 30 MG/ML VIAL. IM ONE (21:45)
--- NOTE | 2020-09-28 21:45 | PHYS DOC ---
Past History Past Medical History: GERD, Other Additional Past Medical Histor: pericarditis, bradycardia, MRSA, low iron levels Past Surgical History: No Surgical History Smoking: Non-smoker Alcohol Use: None Drug Use: None General Adult EDM: Chief Complaint: FOOT INJURY PAIN HPI: HPI: 25-year-old female presents with report of left heel pain status post blunt trauma in which she accidentally kicked the back of her heel on metal bed frame just prior to arrival. Patient reports the force actually broke the metal bed frame. Patient reports pain upon ambulation and if she puts pressure on foot. Pain is primarily to back of heel. Patient reports is able to move foot without significant pain. Denies any numbness or tingling. Denies laceration. Denies significant swelling. Denies . 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 Current Medications: Current Meds: Current Medications Medications (Trade) Dose Ordered Sig/Lakia Start Time Stop Time Status Last Admin Dose Admin Ketorolac Tromethamine (Toradol 30mg Vial) 30 mg 1X ONCE 09/28/20 21:45 09/28/20 21:46 UNV Allergies: Allergies: Allergies Coded Allergies Type Severity Reaction Last Updated Verified No Known Allergies Allergy Unknown 03/06/20 Yes Physical Exam: PE: Constitutional: Well developed, well nourished, no acute distress, non-toxic appearance HENT: Normocephalic, atraumatic Eyes: Conjunctiva normal, no discharge Lungs & Thorax: No respiratory distress, equal chest rise and fall Skin: Warm, dry, no erythema, no rash Extremities: Left heel pain on palpation, no deformity, left DP and PT +2, achilles tenson intact, foot able to plantar and blas-flex Neurologic: Alert and oriented X 3, no focal deficits noted Psychologic: Affect normal, judgment normal EKG: EKG: [] Radiology/Procedures: Radiology/Procedures: PROCEDURE: FOOT LEFT 3V Exam: Left foot 3 views INDICATION: Heel pain status post blunt trauma TECHNIQUE: Frontal, lateral and oblique views of the left foot Comparisons: None FINDINGS: Bone mineralization is normal. No acute or healed fractures. Soft tissues are unremarkable. Joint spaces are well-maintained. IMPRESSION: No acute osseous abnormality Electronically signed by: Davian Spain MD (09/28/2020 9:47 PM) [facility] Heart Score: C/O Chest Pain: N/A Course & Med Decision Making: Course & Med Decision Making Pertinent Imaging studies reviewed. (See chart for details) Patient presents with report of left heel pain status post blunt trauma. Foot neurovascularly intact. Pain addressed. Ice applied. X-ray obtained without signs of acute fracture or dislocation. Patient educated on RICE. Crutches provided. Patient stable for discharge with outpatient follow-up with PCP/podiatry. P odiatry referral provided. Discussed findings and plan with patient, who acknowledges understanding and agreement. Anitra Disclaimer: Anitra Disclaimer: This electronic medical record was generated, in whole or in part, using a voice recognition dictation system. Splinting Splinting : Location: left foot Pre-Made Type: MATTHEW bandage Pre-Proc Neuro Vasc Exam: normal Post-Proc Neuro Vasc Exam: normal, unchanged from pre-exam Departure Departure: Impression: Primary Impression: Contusion of left heel Qualified Codes: S90.32XA - Contusion of left foot, initial encounter Disposition: HOME / SELF CARE / HOMELESS Condition: STABLE Referrals: BETHANIE PUENTE GERIATRIC PERSONAL CARE AIDE-BC (PCP) LUCERO MARIO DPM Patient Instructions: Contusion, Duoz-yp-Ymta, Crutch Use, Ioqy-rf-[id number], Elastic Bandage and RICE Additional Instructions: ICE area of discomfort 20 min on then leave off next 20 mins. Repeat several times daily as needed for pain or discomfort. Take over the counter Tylenol and/or Ibuprofen for pain or discomfort. MICHELLE CASTELLANO DO Sep 28, 2020 21:45
--- NOTE | 2020-09-28 21:50 | RAD ---
Exam: Left foot 3 views INDICATION: Heel pain status post blunt trauma TECHNIQUE: Frontal, lateral and oblique views of the left foot Comparisons: None FINDINGS: Bone mineralization is normal. No acute or healed fractures. Soft tissues are unremarkable. Joint spa mateusz are well-maintained. IMPRESSION: No acute osseous abnormality Electronically signed by: Davian Spain MD (09/28/2020 9:47 PM) [facility]
== END 2020-09-28 21:54 | disposition home or self-care (01) ==
LOC: ER 21:25
DX: S90.32XA Contusion of left foot, initial encounter (principal); K21.9 Gastro-esophageal reflux disease without esophagitis; W22.8XXA Striking against or struck by other objects, initial encounter; Y93.89 Activity, other specified; Y92.89 Other specified places as the place of occurrence of the external cause; Y99.8 Other external cause status
CPT/HCPCS: 73630; 99283

== ENCOUNTER 2020-11-10 22:43 | Emergency (ER) | payer OTHER ==
[~2020-11-10] VITALS: Ht 154.9 cm; Wt 110.9 kg
--- NOTE | 2020-11-10 23:07 | PHYS DOC ---
Past History Past Medical History: GERD, Other Additional Past Medical Histor: pericarditis, bradycardia, MRSA, low iron levels Past Surgical History: No Surgical History Smoking: Non-smoker Alcohol Use: None Drug Use: None Adult General Chief Complaint Chief Complaint: BACK PAIN OR INJURY HPI HPI Patient is a 25-year-old female who presents with a chief complaint of dysuria. States has been going on a couple days and feels similar to previous urinary tract infection she has had in the past. Denies any chest pain, shortness of breath, abdominal pain, nausea, vomiting, hematuria. Denies any fevers. Denies any vaginal bleeding, discharge or pain. Review of Systems Review of Systems Review of systems otherwise unremarkable except noted in HPI Allergies Allergies Allergies Coded Allergies Type Severity Reaction Last Updated Verified No Known Allergies Allergy Unknown 03/06/20 Yes Physical Exam Physical Exam Constitutional: Well developed, well nourished, no acute distress, non-toxic appearance. [] HENT: Normocephalic, atraumatic, bilateral external ears normal, oropharynx moist, no oral exudates, nose normal. [] Cardiovascular:Heart rate regular rhythm, no murmur [] Lungs & Thorax: Bilateral breath sounds clear to auscultation [] Abdomen: soft, no tenderness, no masses, no pulsatile masses. [] Skin: Warm, dry, no erythema, no rash. [] Back: No tenderness, no CVA tenderness. [] Extremities: No tenderness, no cyanosis, no clubbing, ROM intact, no edema. [] Neurologic: Alert and oriented X 3, normal motor function, normal sensory function, no focal deficits noted. [] Psychologic: Affect normal, judgement normal, mood anxious. EKG EKG [] Radiology/Procedures Radiology/Procedures [] Heart Score C/O Chest Pain: No Risk Factors: Risk Factors: DM, Current or recent (<one month) smoker, HTN, HLP, family history of CAD, obesity. Risk Scores: Risk Factors: DM, Current or recent (<one month) smoker, HTN, HLP, family history of CAD, obesity. Course & Med Decision Making Course & Med Decision Making Patient is a 25-year-old female who presents with dysuria Vital signs not concerning. Physical exam noted above. Laboratory analysis notable for bacterial vaginosis. Started on Flagyl in the ED. Discussed all findings with patient. Discussed symptomatic treatment at home. Advised to take antibiotics as prescribed until gone. Advised to follow-up in the morning with primary care physician. Gave return precautions to the ED. Patient grateful, verbalized understanding and agreed with plan of discharge. [] Dragon Disclaimer Dragon Disclaimer This electronic medical record was generated, in whole or in part, using a voice recognition dictation system. Departure Departure: Impression: Primary Impression: Bacterial vaginosis Disposition: HOME / SELF CARE / HOMELESS Condition: GOOD Referrals: BETHANIE PUENTE-OZ (PCP) Patient Instructions: Bacterial Vaginosis Additional Instructions: Thank you for coming into the emergency department tonight and allowing us to take care of you. Please read the attached information carefully to go over things we discussed. Please take your antibiotics as prescribed and until gone. Do not drink alcohol with this medicine as you have an adverse reaction. Please wait till you have finished taking it and 20 for 4 more hours after that. Please call your primary care physician in the morning to update on ED visit and set up a follow-up. Please come back with new or concerning symptoms as discussed. Scripts Metronidazole (FLAGYL) 500 Mg Tablet 1 TAB PO BID for BV, #13 TAB Prov: CT PALOMINO MD 11/11/20 CT PALOMINO MD Nov 10, 2020 23:06
[2020-11-10 23:45] VITALS: BP 144/102
--- NOTE | 2020-11-11 00:10 | RAD ---
EXAM: CT Abdomen and Pelvis without IV contrast CLINICAL HISTORY: FLANK PAIN RADIATING TO GROIN COMPARISON: none TECHNIQUE: Helical CT of the abdomen and pelvis without intravenous contrast. Axial, coronal and sagi ttal reformatted images were generated. PQRS compliance statement - One or more of the following individualized dose reduction techniques wer e utilized for this study: 1. Automated exposure control 2. Adjustment of the mA and/or kV according to patient size 3. Use of iterative reconstruction technique FINDINGS: Lack of intravenous contrast limits evaluation of solid organs, vasculature, and lymph nodes. Lower chest: Lung bases are clear. Abdomen and Pelvis: No focal liver lesion. Gallbladder is normal. No biliary dilatation. Pancreas and spleen are unremark able. Adrenal glands are normal. No focal renal lesion. No hydronephrosis. No hydroureter. Bladder wa ll is mildly thickened. No renal tract calculus. Uterus and adnexa are grossly unremarkable by CT. Appendix is normal moderate colonic stool content i s seen. No small or large bowel dilatation. No bowel obstruction. No abdominal or pelvic ascites. No abdominal or pelvic lymphadenopathy. Bones: No aggressive osseous lesion is seen. Degenerative changes of spine are seen. Mild wedging of several lower thoracic levels. IMPRESSION: 1. No renal tract calculus. 2. Mild bladder wall thickening, possibly related to underdistention, but also may be seen with cyst itis and can be correlated with urinalysis. 3. Moderate colonic stool content. No bowel obstruction. Electronically signed by: Bruno Navas MD (11/11/2020 12:07 AM) [facility]
[2020-11-11 00:31] LABS: BILIRUBIN,URINE NEG (NEG); CLARITY,URINE HAZY; COLOR,URINE YELLOW; GLUCOSE,URINE NEG (NEG); NITRITE,URINE NEG (NEG); RBC,URINE 0 /HPF (0-2); UROBILINOGEN,URINE 0.2 mg/dL (0.2 mg/dL); WBC,URINE OCC /HPF (0-4)
[2020-11-11 00:32] LABS: BACTERIA,URINE FEW /HPF (0-FEW); SQUAMOUS EPITHELIAL CELL,UR MOD /LPF
[2020-11-11] MEDS ORDERED: METR500T PO (00:50)
[2020-11-11] MEDS: metroNIDAZOLE 500 MG TABLET PO ONE (01:14)
[2020-11-11] MEDS ORDERED: CLIN-95 PO (01:22)
[2020-11-11] MEDS ORDERED: CLINDAMYCIN HCL 150 MG CAPSULE PO ONE (01:30)
== END 2020-11-11 01:25 | disposition home or self-care (01) ==
LOC: ER 22:43
DX: N76.0 Acute vaginitis (principal); K21.9 Gastro-esophageal reflux disease without esophagitis
CPT/HCPCS: 74176; 81001; 81025; 87491; 87591; 99284; Q0111; 36415

== ENCOUNTER 2020-11-18 19:53 | Emergency (ER) | payer OTHER ==
[~2020-11-18] VITALS: Ht 185.4 cm; Wt 85.1 kg
[~2020-11-18 19:53] MED LIST changes: +CLIN-95 PO; +METR500T PO
[2020-11-18 20:20] VITALS: BP 127/91
--- NOTE | 2020-11-18 20:28 | PHYS DOC ---
Past History Past Medical History: GERD, Other Additional Past Medical Histor: pericarditis, bradycardia, MRSA, low iron levels, low vit d Past Surgical History: Other Smoking: Non-smoker Alcohol Use: None Drug Use: None Adult General Chief Complaint Chief Complaint: Palpitations HPI HPI Patient is an otherwise healthy 25-year-old female who presents the emergency department with a chief complaint of palpitations Review of Systems Review of Systems Review of systems otherwise unremarkable except noted in HPI Allergies Allergies Allergies Coded Allergies Type Severity Reaction Last Updated Verified No Known Allergies Allergy Unknown 11/18/20 Yes Physical Exam Physical Exam Constitutional: Well developed, well nourished, no acute distress, non-toxic appearance. [] HENT: Normocephalic, atraumatic, bilateral external ears normal, oropharynx moist, no oral exudates, nose normal. [] Eyes: conjunctiva normal, no discharge. [] Neck: Normal range of motion, no tenderness, supple, no stridor. [] Cardiovascular:Heart rate regular rhythm, no murmur [] Lungs & Thorax: Bilateral breath sounds clear to auscultation [] Abdomen: soft, no tenderness, no masses, no pulsatile masses. [] Skin: Warm, dry, no erythema, no rash. [] Back: No tenderness, no CVA tenderness. [] Extremities: No tenderness, ROM intact, no edema. [] Neurologic: Alert and oriented X 3, no focal deficits noted. [] Psychologic: Affect normal, judgement normal, mood normal. [] Current Patient Data Vital Signs Vital Signs Date Time Temp Pulse Resp B/P (MAP) Pulse Ox O2 Delivery O2 Flow Rate FiO2 11/18/20 20:20 98.2 98 18 127/91 (103) 100 EKG EKG EKG with a rate of 92, QRS of 96, QTc of 4 8, no STEMI [] Radiology/Procedures Radiology/Procedures [] Heart Score C/O Chest Pain: No Risk Factors: Risk Factors: DM, Current or recent (<one month) smoker, HTN, HLP, family history of CAD, obesity. Risk Scores: Risk Factors: DM, Current or recent (<one month) smoker, HTN, HLP, family history of CAD, obesity. Course & Med Decision Making Course & Med Decision Making Patient is a 25-year-old female who presents with a chief complaint of palpitations Vital signs notable for heart rate mora unremarkable. Physical exam noted above. EKG noted above and normal. Troponin normal. Heart score of 0. Low risk Wells. PERC negative. Laboratory analysis not concerning. On reassessment patient asymptomatic. Discussed all findings with patient. Advised to follow-up first thing with primary care physician on Saturday to update on ED visit and set up an appointment soon as possible. Gave return precautions to the ED. Patient grateful, verbalized understanding and agreed with plan of discharge. [] Dragon Disclaimer Dragon Disclaimer This electronic medical record was generated, in whole or in part, using a voice recognition dictation system. Departure Departure: Impression: Primary Impression: Palpitations Disposition: HOME / SELF CARE / HOMELESS Condition: GOOD Referrals: BETHANIE PUENTE (PCP) Patient Instructions: Palpitations Additional Instructions: Thank you for coming into the emergency department tonight and allowing us to take care of you. Please read the attached information carefully to go back over some of the things we discussed. It is very important that you follow-up with your primary care physician first thing Saturday morning to update them on your ED visit and set up a follow-up as soon as possible. I want you to please come back to the emergency department immediately if you have any new or concerning symptoms or the symptoms we discussed in the ED. CT PALOMINO MD Nov 18, 2020 20:28
[2020-11-18 21:47] LABS: HEMATOCRIT 41.8 % (36.0-47.0); HEMOGLOBIN 13.7 g/dL (12.0-15.5); RED BLOOD COUNT 4.46 x10^6/uL (3.50-5.40); RED CELL DISTRIBUTION WIDTH 13.7 % (11.5-14.5)
[2020-11-18 21:52] LABS: CALCIUM 9.3 mg/dL (8.5-10.1); CREATININE 0.6 mg/dL (0.6-1.0); GFR 122.8; POTASSIUM 3.4 mmol/L (3.5-5.1)
[2020-11-18 22:28] LABS: BILIRUBIN,URINE NEG (NEG); CLARITY,URINE CLEAR; COLOR,URINE COLORLESS; GLUCOSE,URINE NEG (NEG)
[2020-11-18 22:29] LABS: BACTERIA,URINE 0 /HPF (0-FEW); NITRITE,URINE NEG (NEG); RBC,URINE 0 /HPF (0-2); SQUAMOUS EPITHELIAL CELL,UR OCC /LPF; UROBILINOGEN,URINE 0.2 mg/dL (0.2 mg/dL); WBC,URINE OCC /HPF (0-4)
--- NOTE | 2020-11-18 23:27 | EKG ---
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
== END 2020-11-18 22:29 | disposition home or self-care (01) ==
LOC: ER 19:53
DX: R00.2 Palpitations (principal); K21.9 Gastro-esophageal reflux disease without esophagitis
CPT/HCPCS: 36415; 80048; 81001; 81025; 83735; 84484; 85027; 85379; 93005; 99284-25

== ENCOUNTER 2020-11-24 16:06 | Emergency (ER) | payer OTHER ==
[~2020-11-24] VITALS: Ht 185.4 cm; Wt 107.8 kg
[2020-11-24 16:16] VITALS: BP 133/78
--- NOTE | 2020-11-24 16:40 | PHYS DOC ---
Past History Past Medical History: GERD, Other Additional Past Medical Histor: pericarditis, bradycardia, MRSA, low iron levels, low vit d (MICHELLE CASTAÑEDA APRN) Past Surgical History: Other (MICHELLE CASTAÑEDA APRN) Smoking: Non-smoker Alcohol Use: None Drug Use: None (MICHELLE CASTAÑEDA APRN) Adult General Chief Complaint Chief Complaint: DIARRHEA HPI HPI Patient is a 25-year-old female presents emergency department complaining of diarrhea for the past 3 days. Patient reports being seen on 11/11/2020 and diagnosed with bacterial vaginosis and dental abscess. Patient reports being started on 10-day regimen of clindamycin and Flagyl. Patient reported having loose stools several times for the past 3 days however has not had a loose stool or diarrhea episode for the past hour and a half, denies abdominal pain or discomfort. Denies vaginal discharge. Denies nausea or vomiting. Denies recent fever or chills. Denies other physical complaints or physical concerns. (MICHELLE CASTAÑEDA APRN) Review of Systems Review of Systems 14 body systems of review of systems have been reviewed. See HPI for pertinent positives and negative responses, otherwise all other systems are negative, nonpertinent or noncontributory. Constitutional: Negative except as outlined in HPI above. Skin: Negative except as outlined in HPI above. Eyes: Negative except as outlined in HPI above. HENT: Negative except as outlined in HPI above. Respiratory: Negative except as outlined in HPI above. Cardiovascular: Negative except as outlined in HPI above. GI: Negative except as outlined in HPI above. : Negative except as outlined in HPI above. Musculoskeletal: Negative except as outlined in HPI above. Integument: Negative except as outlined in HPI above. Neurologic: Negative except as outlined in HPI above. Endocrine: Negative except as outlined in HPI above. Lymphatic: Negative except as outlined in HPI above. Psychiatric: Negative except as outlined in HPI above. (MICHELLE CASTAÑEDA APRN) Allergies Allergies Allergies Coded Allergies Type Severity Reaction Last Updated Verified No Known Allergies Allergy Unknown 11/18/20 Yes (MICHELLE CASTAÑEDA APRN) Physical Exam Physical Exam Constitutional: Well developed, well nourished, no acute distress, non-toxic appearance. 25-year-old female in no apparent distress. HENT: Normocephalic, atraumatic. Eyes: Conjunctiva normal, no discharge. Neck: Normal range of motion, no stridor. Cardiovascular: No cyanosis appreciated, distal cap refill less than 2 seconds. Lungs & Thorax: Patient is in no respiratory distress, no audible adventitious l anali sounds appreciated. Abdomen: Nontender, no abnormalities noted. No skin discoloration appreciated of the abdomen, bowel sounds normal all 4 quadrants to auscultation. Skin: Warm, dry, no erythema, no rash. Back: No tenderness, no deformities. Extremities: No tenderness, no cyanosis, no clubbing, ROM intact, no edema. Neurologic: Alert and oriented X 3, normal motor function, normal sensory function, no focal deficits noted. Psychologic: Affect normal, judgement normal, mood normal. (MICHELLE CASTAÑEDA APRN) Current Patient Data Vital Signs Vital Signs Date Time Temp Pulse Resp B/P (MAP) Pulse Ox O2 Delivery O2 Flow Rate FiO2 11/24/20 16:16 98.5 62 18 133/78 (96) 100 Room Air (MICHELLE CASTAÑEDA APRN) EKG EKG [] (MICHELLE CASTAÑEDA APRN) Radiology/Procedures Radiology/Procedures [] (MICHELLE CASTAÑEDA APRN) Heart Score C/O Chest Pain: No Risk Factors: Risk Factors: DM, Current or recent (<one month) smoker, HTN, HLP, family history of CAD, obesity. Risk Scores: Risk Factors: DM, Current or recent (<one month) smoker, HTN, HLP, family history of CAD, obesity. (MICHELLE CASTAÑEDA APRN) Course & Med Decision Making Course & Med Decision Making Pertinent Labs and Imaging studies reviewed. (See chart for details) 25-year-old female, vital signs reviewed, since emergency department concerning loose stools past 3 days. Physical examination unremarkable. Patient reports on her discharge instructions she was told to come to the emergency department for diarrhea. Patient reports she is not having diarrhea, does reports her stools became looser than normal. Discussed with patient options for loose stool/diarrhea treatment, patient states she would like to try hswe-uhi-djemalb probiotic, multivitamin, increase fluid intake as she states her last episode was over an hour and a half ago now and she is having no further symptoms of diarrhea or loose stools. Patient reports she only came to emergency department because her discharge instructions told her to do so. Patient states she will try home remedy, will attempt msvb-[id number]-gtqleth Imodium if she has any more loose stools, will return to the emergency department if symptoms worsen or she starts having abdominal pain or discomfort. The patient's vital signs are within normal limits, her oral mucosa is moist, there are no signs of dehydration, this is unlikely a C. difficile infection, however diarrhea/loose stools most likely related to Flagyl and clindamycin regimen for 10 days. Patient is amenable to ED discharge planning. Discussed with the patient all findings and diagnostic testing as well as the need to follow-up with their primary care provider for further evaluation and treatment or return to the ED if any new or worsening symptoms. Strict return precautions were also discussed at length, the patient voiced understanding and agreement with the discharge planning. The patient was nontoxic in appearance, in no apparent distress, and hemodynamically stable at the time of disposition. (MICHELLE CASTAÑEDA APRN) Course & Med Decision Making I was the Attending physician on the above date of service of this patient. This patient was evaluated, examined, treated, and dispositioned from the emergency department by the mid-level practitioner. Although I was working at the time , no assistance was requested. Electronically signed, Ash Crowe DO (ASH CROWE DO) Anitra Disclaimer Dragkarel Disclaimer This electronic medical record was generated, in whole or in part, using a voice recognition dictation system. (MICHELLE CASTAÑEDA APRN) Departure Departure: Impression: Primary Impression: Diarrhea Disposition: HOME / SELF CARE / HOMELESS Condition: GOOD Referrals: BETHANIE PUENTE [facility] (PCP) Patient Instructions: Diarrhea, Diarrhea, Voeu-ob-Iehp Additional Instructions: You were seen today in the emergency department for diarrhea that developed after taking a regimen of 2 different antibiotics. You had stated that you were actually feeling better today. As we discussed at length, please consider trying an yeod-dsd-gzmlyfs probiotic along with a multivitamin with increased water intake to help prevent any dehydration or electrolyte imbalance. If your symptoms persist or worsen over the next 2 to 3 days please return the emergency department for reevaluation. You may still experience some loose stool but expect them to become fewer and less often over the next day or so. You should not experience any blood in your stool, please return to the emergency department if you experience this. Thank you for visiting our Emergency Department. It was a pleasure taking care of you today in the emergency department and we appreciate you trusting us with your care. If any additional problems come up don't hesitate to return to visit us. Please follow up with your primary care provider so they can plan additional care if needed and know about the problem that you had. If symptoms worsen come back to the Emergency Department. Any concerning symptoms that start such as chest pain, shortness of air, weakness or numbness on one side of the body, running high fevers or any other concerning symptoms return to the ER. Problem Qualifiers Primary Impression: Diarrhea Diarrhea type: unspecified type Qualified Codes: R19.7 - Diarrhea, unspecified MICHELLE CASTAÑEDA APRN Nov 24, 2020 16:40 ASH CROWE DO Nov 26, 2020 12:08
== END 2020-11-24 16:46 | disposition home or self-care (01) ==
LOC: ER 16:06
DX: R19.7 Diarrhea, unspecified (principal); K21.9 Gastro-esophageal reflux disease without esophagitis
CPT/HCPCS: 99282

== ENCOUNTER 2020-12-16 17:19 | Emergency (ER) | payer OTHER ==
[~2020-12-16] VITALS: Ht 185.4 cm; Wt 107.8 kg
[2020-12-16 19:05] LABS: BASO # 0.1 x10^3/uL (0.0-0.2); BASO % 1 % (0-3); EOS # 0.1 x10^3/uL (0.0-0.7); EOS % 1 % (0-3); HEMATOCRIT 41.8 % (36.0-47.0); HEMOGLOBIN 13.7 g/dL (12.0-15.5); LYMPH # 2.7 x10^3/uL (1.0-4.8); LYMPH % 27 % (24-48); MEAN CORPUSCULAR HEMOGLOBIN 31 pg (25-35); MEAN CORPUSCULAR HGB CONC 33 g/dL (31-37); MEAN CORPUSCULAR VOLUME 95 fL (79-100); MONO # 0.5 x10^3/uL (0.0-1.1); MONO % 5 % (0-9); NEUT # 6.5 x10^3uL (1.8-7.7); NEUT % 66 % (31-73); PLATELET COUNT 254 x10^3/uL (140-400); RED BLOOD COUNT 4.42 x10^6/uL (3.50-5.40); RED CELL DISTRIBUTION WIDTH 13.5 % (11.5-14.5); WHITE BLOOD COUNT 9.9 x10^3/uL (4.0-11.0)
[2020-12-16 19:09] LABS: CALCIUM 9.5 mg/dL (8.5-10.1); CREATININE 0.6 mg/dL (0.6-1.0); GFR 122.8; POTASSIUM 3.4 mmol/L (3.5-5.1)
[2020-12-16 19:15] LABS: ALBUMIN 3.8 g/dL (3.4-5.0); ALBUMIN/GLOBULIN RATIO 0.9 (1.0-1.7); TOTAL BILIRUBIN 1.3 mg/dL (0.2-1.0)
[2020-12-16 19:31] LABS: BACTERIA,URINE 0 /HPF (0-FEW); BILIRUBIN,URINE NEG (NEG); CLARITY,URINE CLEAR; COLOR,URINE YELLOW; GLUCOSE,URINE NEG (NEG); NITRITE,URINE NEG (NEG); RBC,URINE 0 /HPF (0-2); UROBILINOGEN,URINE 0.2 mg/dL (0.2 mg/dL); WBC,URINE 0 /HPF (0-4)
--- NOTE | 2020-12-16 19:43 | PHYS DOC ---
Past History Past Medical History: GERD, Other Additional Past Medical Histor: pericarditis, bradycardia, MRSA, low iron levels, low vit d (FROY FRIAS) Past Surgical History: Other (FROY FRIAS) Smoking: Non-smoker Alcohol Use: None Drug Use: None (FROY FRIAS) General Adult EDM: Chief Complaint: BLOOD IN URINE HPI: HPI: Patient is a 25 year old female who presents from urgent care with complaint of blood and ketones in her urine. States she went to urgent care today because her urine has "been weird for the past few days." She reports associated anorexia, weight loss, polydipsia and strong smell to her urine. Urgent care provider told the patient they were concerned for new onset diabetes. Patient reports her last menstrual period was 11/22/2020. Patient denies fever, chills, abdominal pain, NVD, dysuria, gross hematuria. (FROY FRIAS) Review of Systems: Review of Systems: 12 systems reviewed. ROS negative except as mentioned in HPI. (FROY FRIAS) Allergies: Allergies: Allergies Coded Allergies Type Severity Reaction Last Updated Verified No Known Allergies Allergy Unknown 11/18/20 Yes (FROY FRIAS) Physical Exam: PE: Constitutional: Well developed, well nourished, no acute distress, non-toxic appearance. Cardiovascular: Heart rate regular rhythm, no murmur. Lungs & Thorax: Bilateral breath sounds clear to auscultation. Abdomen: Bowel sounds normal, soft, no tenderness, no masses, no pulsatile masses. Skin: Warm, dry, no erythema, no rash. Back: No step-off, no tenderness, no CVA tenderness. Extremities: No tenderness, no cyanosis, no clubbing, ROM intact, no edema. Neurologic: Alert and oriented x3, order function grossly intact, sensory function grossly intact, no focal deficits noted. (FROY FRIAS) Current Patient Data: Labs: Laboratory Tests Test 12/16/20 18:40 12/16/20 18:46 White Blood Count 9.9 x10^3/uL (4.0-11.0) Red Blood Count 4.42 x10^6/uL (3.50-5.40) Hemoglobin 13.7 g/dL (12.0-15.5) Hematocrit 41.8 % (36.0-47.0) Mean Corpuscular Volume 95 fL (79-100) Mean Corpuscular Hemoglobin 31 pg (25-35) Mean Corpuscular Hemoglobin Concent 33 g/dL (31-37) Red Cell Distribution Width 13.5 % (11.5-14.5) Platelet Count 254 x10^3/uL (140-400) Neutrophils (%) (Auto) 66 % (31-73) Lymphocytes (%) (Auto) 27 % (24-48) Monocytes (%) (Auto) 5 % (0-9) Eosinophils (%) (Auto) 1 % (0-3) Basophils (%) (Auto) 1 % (0-3) Neutrophils # (Auto) 6.5 x10^3uL (1.8-7.7) Lymphocytes # (Auto) 2.7 x10^3/uL (1.0-4.8) Monocytes # (Auto) 0.5 x10^3/uL (0.0-1.1) Eosinophils # (Auto) 0.1 x10^3/uL (0.0-0.7) Basophils # (Auto) 0.1 x10^3/uL (0.0-0.2) Sodium Level 136 mmol/L (136-145) Potassium Level 3.4 mmol/L (3.5-5.1) L Chloride Level 102 mmol/L (98-107) Carbon Dioxide Level 27 mmol/L (21-32) Anion Gap 7 (6-14) Blood Urea Nitrogen 6 mg/dL (7-20) L Creatinine 0.6 mg/dL (0.6-1.0) Estimated GFR (Cockcroft-Gault) 122.8 BUN/Creatinine Ratio 10 (6-20) Glucose Level 93 mg/dL (70-99) Calcium Level 9.5 mg/dL (8.5-10.1) Total Bilirubin 1.3 mg/dL (0.2-1.0) H Aspartate Amino Transferase (AST) 15 U/L (15-37) Alanine Aminotransferase (ALT) 18 U/L (14-59) Alkaline Phosphatase 75 U/L (46-116) Total Protein 8.0 g/dL (6.4-8.2) Albumin 3.8 g/dL (3.4-5.0) Albumin/Globulin Ratio 0.9 (1.0-1.7) L Lipase 72 U/L (73-393) L Urine Collection Type Clean catch Urine Color Yellow Urine Clarity Clear Urine pH 5.5 Urine Specific [place] 1.020 Urine Protein Neg (NEG-TRACE) Urine Glucose (UA) Neg mg/dL (NEG) Urine Ketones (Stick) 15 mg/dL (NEG) Urine Blood Trace (NEG) Urine Nitrite Neg (NEG) Urine Bilirubin Neg (NEG) Urine Urobilinogen Dipstick 0.2 mg/dL (0.2 mg/dL) Urine Leukocyte Esterase Neg (NEG) Urine RBC 0 /HPF (0-2) Urine WBC 0 /HPF (0-4) Urine Bacteria 0 /HPF (0-FEW) Vital Signs: Vital Signs Date Time Temp Pulse Resp B/P (MAP) Pulse Ox O2 Delivery O2 Flow Rate FiO2 12/16/20 17:20 97.3 70 16 133/78 (96) 100 Room Air (FROY FRIAS) Heart Score: C/O Chest Pain: No (FROY FRIAS) Course & Med Decision Making: Course & Med Decision Making Pertinent Labs and Imaging studies reviewed. (See chart for details) Urgent care provider was concerned for patient being new onset diabetes. Blood work and urinalysis today are not concerning for diabetic crisis. Patient's random blood sugar is less than 100. On requestioning, patient continues to deny dysuria, flank pain, low back pain, groin pain. Patient states she was treated for bacterial vaginosis last week and has had no further symptoms since treatment. Patient is advised to follow-up with her primary care provider for further evaluation. Patient aware that further lab work, including hemoglobin A1c, will be necessary to rule in or rule out a diagnosis of diabetes. Patient und erstands and is agreeable to discharge plan. (FROY FRIAS) Dragon Disclaimer: Dragon Disclaimer: This electronic medical record was generated, in whole or in part, using a voice recognition dictation system. (FROY FRIAS) Departure Departure: Impression: Primary Impression: Microhematuria Disposition: HOME / SELF CARE / HOMELESS Condition: STABLE Referrals: BETHANIE PUENTE-OZ (PCP) Patient Instructions: Diabetes, FAQs, How to Avoid Diabetes Problems, Potassium Content of Foods Additional Instructions: Your lab work today is not concerning for a diabetic crisis. Here in the emergency department, we are not able to diagnose diabetes. As discussed, follow-up with your primary care provider and attempt to obtain an appointment. Your potassium level was slightly below normal. I advise eating foods high in potassium. When you visit your primary care doctor, you may have this ree valuated. If you develop any new symptoms, please return to the emergency department. Attending Signature Attending Signature I have participated in the care of this patient and I have reviewed and agree with all pertinent clinical information above including history, exam, and recommendations. (ZACHARY AGUILA MD) FROY FRIAS Dec 16, 2020 19:43 ZACHARY AGUILA MD Dec 19, 2020 08:34
[2020-12-16 19:45] VITALS: BP 128/74
== END 2020-12-16 19:55 | disposition home or self-care (01) ==
LOC: ER 17:19
DX: R31.29 Other microscopic hematuria (principal)
CPT/HCPCS: 36415; 80053; 81001; 83690; 85025; 99283-25

== ENCOUNTER 2020-12-24 16:33 | Emergency (ER) | payer OTHER ==
[~2020-12-24] VITALS: Ht 185.4 cm; Wt 106.3 kg
[2020-12-24 16:33] VITALS: BP 139/74
[2020-12-24] MEDS ORDERED: IOHEXOL 300 MG/ML 75 ML VIAL. IV ONE (17:15)
[2020-12-24 17:37] LABS: BASO # 0.1 x10^3/uL (0.0-0.2); BASO % 1 % (0-3); EOS # 0.1 x10^3/uL (0.0-0.7); EOS % 1 % (0-3); HEMATOCRIT 40.5 % (36.0-47.0); HEMOGLOBIN 12.9 g/dL (12.0-15.5); LYMPH # 2.5 x10^3/uL (1.0-4.8); LYMPH % 32 % (24-48); MEAN CORPUSCULAR HEMOGLOBIN 31 pg (25-35); MEAN CORPUSCULAR HGB CONC 32 g/dL (31-37); MEAN CORPUSCULAR VOLUME 96 fL (79-100); MONO # 0.3 x10^3/uL (0.0-1.1); MONO % 4 % (0-9); NEUT # 4.8 x10^3uL (1.8-7.7); NEUT % 62 % (31-73); PLATELET COUNT 280 x10^3/uL (140-400); RED BLOOD COUNT 4.23 x10^6/uL (3.50-5.40); RED CELL DISTRIBUTION WIDTH 13.9 % (11.5-14.5); WHITE BLOOD COUNT 7.8 x10^3/uL (4.0-11.0)
[2020-12-24 17:45] LABS: CREATININE 0.6 mg/dL (0.6-1.0); GFR 122.8
--- NOTE | 2020-12-24 17:46 | PHYS DOC ---
Past History Past Medical History: GERD, Other Additional Past Medical Histor: pericarditis, bradycardia, MRSA, low iron levels, low vit d (KAYLYN OBREGON APRN) Past Surgical History: No Surgical History (KAYLYN OBREGON APRN) Smoking: Non-smoker Alcohol Use: None Drug Use: None (KAYLYN OBREGON APRN) Adult General Chief Complaint Chief Complaint: ABDOMINAL PAIN HPI HPI Patient is a 25-year-old female patient presenting to the ED today complaining of a sharp intermittent right lower quadrant abdominal pain rated at 7 out of 10 symptoms began this morning. Denies any diarrhea, nausea or vomiting. Denies anything specifically exacerbating or relieving the symptoms. She states she was seen at urgent care a week ago for dark urine and was started on Macrobid but her urine only had ketones and blood, she states she does not know why she was put on Macrobid. She states she was also seen in the ED on that same day after being sent from urgent care. (KAYLYN OBREGON APRN) Review of Systems Review of Systems Constitutional: Denies fever or chills [] Eyes: Denies change in visual acuity, redness, or eye pain [] HENT: Denies nasal congestion or sore throat [] Respiratory: Denies cough or shortness of breath [] Cardiovascular: No additional information not addressed in HPI [] GI: Reports right lower quadrant abdominal pain, denies nausea, vomiting, bloody stools or diarrhea [] : Denies dysuria or hematuria [] Musculoskeletal: Denies back pain or joint pain [] Integument: Denies rash or skin lesions [] Neurologic: Denies headache, focal weakness or sensory changes [] All other systems were reviewed and found to be within normal limits, except as documented in this note. (KAYLYN OBREGON APRN) Current Medications Current Medications Current Medications Medications (Trade) Dose Ordered Sig/Lakia Start Time Stop Time Status Last Admin Dose Admin Iohexol (Omnipaque 300 Mg/ml) 75 ml 1X ONCE 12/24/20 17:15 12/24/20 17:23 DC 12/24/20 17:30 75 ML (KAYLYN OBREGON APRN) Allergies Allergies Allergies Coded Allergies Type Severity Reaction Last Updated Verified No Known Allergies Allergy Unknown 11/18/20 Yes (MUTUNGA,KAYLYN M [employer]) Physical Exam Physical Exam Constitutional: Well developed, well nourished, no acute distress, non-toxic appearance. [] HENT: Normocephalic, atraumatic, bilateral external ears normal, oropharynx moist, no oral exudates, nose normal. [] Eyes: PERRLA, EOMI, conjunctiva normal, no discharge. [] Neck: Normal range of motion, no tenderness, supple, no stridor. [] Cardiovascular:Heart rate regular rhythm, no murmur [] Lungs & Thorax: Bilateral breath sounds clear to auscultation [] Abdomen: Obese abdomen. Bowel sounds normal, soft, no right upper quadrant tenderness, slight right mid to right lower quadrant tenderness with negative psoas sign, negative obturator sign, negative Rovsing sign, negative Hernandes sign, no guarding, no rebound pain or tenderness, no masses, no pulsatile masses. [] Skin: Warm, dry, no erythema, no rash. [] Back: No tenderness, no CVA tenderness. [] Extremities: No tenderness, no cyanosis, no clubbing, ROM intact, no edema. [] Neurologic: Alert and oriented X 3, normal motor function, normal sensory function, no focal deficits noted. [] Psychologic: Affect normal, judgement normal, mood normal. [] (KAYLYN OBREGON APRN) Current Patient Data Vital Signs Vital Signs Date Time Temp Pulse Resp B/P (MAP) Pulse Ox O2 Delivery O2 Flow Rate FiO2 12/24/20 16:33 77 16 139/74 (95) 100 Room Air (KAYLYN OBREGON APRN) EKG EKG [] (KAYLYN OBREGON APRN) Radiology/Procedures Radiology/Procedures []PROCEDURE: CT ABD PELV W/ IV CONTRST ONLY Exam: CT of abdomen and pelvis with contrast INDICATION: Right lower quadrant pain TECHNIQUE: Sequential axial images through the abdomen and pelvis obtained following the administration of 75 mL of Isovue-370 IV contrast. Sagittal and coronal reformatted images were reconstructed from the axial data and reviewed. Exposure: One or more of the following in the visualized dose reduction techniques were utilized for this examination: 1. Automated exposure control 2. Adjustment of the MA and/or KV according to patient size 3. Use of iterative of reconstructive technique Comparisons: 11/10/2020 FINDINGS: Heart size is normal. No pericardial effusion. Visualized lung bases are clear. No pleural effusion. Liver, spleen, pancreas, gallbladder and adrenals are unremarkable. No perinephric inflammation or hydronephrosis. No renal or ureteral calculi are identified. Bladder is partially distended and appears thin-walled. Uterus is not enlarged. No abnormal adnexal mass. Large and small bowel are unremarkable. Appendix is is not identified. No free intra-abdominal air or fluid. No obstruction. Abdominal aorta has a normal course and caliber. Abdominal vasculature is patent. No enlarged intra-abdominal lymph nodes are identified. No suspicious osseous lesions or acute fractures. IMPRESSION: No acute process identified within the abdomen or pelvis. Electronically signed by: Davian Bay MD (12/24/2020 5:52 PM) [facility] DICTATED AND SIGNED BY: DAVIAN BAY MD DATE: 12/24/201746 CC: KAYLYN OBREGON APRN; BETHANIE PUENTE DOUGH RAISER-BC ~MTH0 0 (KAYLYN OBREGON APRN) Heart Score C/O Chest Pain: N/A Risk Factors: Risk Factors: DM, Current or recent (<one month) smoker, HTN, HLP, family history of CAD, obesity. Risk Scores: Risk Factors: DM, Current or recent (<one month) smoker, HTN, HLP, family history of CAD, obesity. (KAYLYN OBREGON APRN) Course & Med Decision Making Course & Med Decision Making Pertinent Labs and Imaging studies reviewed. (See chart for details) This is a 25-year-old female patient presenting to the ED today with right lower quadrant abdominal pain that began today. CBC with no acute findings, CMP with potassium of 3.0, patient was given oral potassium replacement in the ED and encouraged to increase her dietary potassium intake at home. Urine noted for trace ketones and moderate amount of blood. Encouraged this patient to follow-up with her PCP as well as her urologist CT of the abdomen and pelvis is negative for any acute findings Patient was discharged home. Provided return precautions (KAYLYN OBREGON APRN) Course & Med Decision Making Did not see or evaluate patient. Did not discuss patient with COMMAND AND CONTROL OFFICER. Agree with COMMAND AND CONTROL OFFICER's work-up and disposition per note. (CT PALOMINO MD) Dragon Disclaimer Dragon Disclaimer This electronic medical record was generated, in whole or in part, using a voice recognition dictation system. (KAYLYN OBREGON APRN) Departure Departure: Impression: Primary Impression: Abdominal pain, RLQ Additional Impressions: Hematuria Hypokalemia Disposition: HOME / SELF CARE / HOMELESS Condition: STABLE Referrals: BETHANIE PUENTE-OZ (PCP) Follow-up with your primary care doctor and urologist next week Patient Instructions: Abdominal Pain (Nonspecific), Hematuria, Adult, Hypokalemia-Brief Additional Instructions: You were evaluated in the emergency room for abdominal pain. Your CT of the abdomen and pelvis is negative for any acute findings. Your potassium is slightly low. We encourage you to increase your potassium dietary intake through foods like bananas. Your urine continues to have blood and trace amount of ketones. We encourage you to push fluids. Follow-up with a urologist and your primary care doctor. Problem Qualifiers Additional Impressions: Hematuria Hematuria type: asymptomatic microscopic Qualified Codes: R31.21 - Asymptomatic microscopic hematuria KAYLYN OBREGON APRN Dec 24, 2020 17:46 CT PALOMINO MD Dec 24, 2020 18:41
[2020-12-24 17:51] LABS: ALBUMIN 3.7 g/dL (3.4-5.0); TOTAL BILIRUBIN 0.7 mg/dL (0.2-1.0); TOTAL PROTEIN 7.5 g/dL (6.4-8.2)
--- NOTE | 2020-12-24 17:54 | RAD ---
Exam: CT of abdomen and pelvis with contrast INDICATION: Right lower quadrant pain TECHNIQUE: Sequential axial images through the abdomen and pelvis obtained following the administrati on of 75 mL of Isovue-370 IV contrast. Sagittal and coronal reformatted images were reconstructed fro m the axial data and reviewed. Exposure: One or more of the following in the visualized dose reduction techniques were utilized for this examination: 1. Automated exposure control 2. Adjustment of the MA and/or KV according to patient size 3. Use of iterative of reconstructive technique Comparisons: 11/10/2020 FINDINGS: Heart size is normal. No pericardial effusion. Visualized lung bases are clear. No pleural effusion. Liver, spleen, pancreas, gallbladder and adrenals are unremarkable. No perinephric inflammation or hydronephrosis. No renal or ureteral calculi are identified. Bladder is partially distended and appears thin-walled. Uterus is not enlarged. No abnormal adnexal m ass. Large and small bowel are unremarkable. Appendix is is not identified. No free intra-abdominal air or fluid. No obstruction. Abdominal aorta has a normal course and caliber. Abdominal vasculature is patent. No enlarged intra-abdominal lymph nodes are identified. No suspicious osseous lesions or acute fractures. IMPRESSION: No acute process identified within the abdomen or pelvis. Electronically signed by: Davian Spain MD (12/24/2020 5:52 PM) [facility]
[2020-12-24 17:57] LABS: BILIRUBIN,URINE NEG (NEG); CLARITY,URINE CLEAR; COLOR,URINE YELLOW; GLUCOSE,URINE NEG (NEG); NITRITE,URINE NEG (NEG); UROBILINOGEN,URINE 0.2 mg/dL (0.2 mg/dL)
[2020-12-24 17:58] LABS: BACTERIA,URINE 0 /HPF (0-FEW); SQUAMOUS EPITHELIAL CELL,UR MANY /LPF; WBC,URINE 0 /HPF (0-4)
[2020-12-24] MEDS ORDERED: POTASSIUM CHLORIDE 20 MEQ TABLET.ER. PO ONE (18:15)
== END 2020-12-24 18:20 | disposition home or self-care (01) ==
LOC: ER 16:33
DX: R31.21 Asymptomatic microscopic hematuria (principal); E87.6 Hypokalemia; R10.31 Right lower quadrant pain; K21.9 Gastro-esophageal reflux disease without esophagitis
CPT/HCPCS: 36415; 74177; 80053; 81001; 83690; 85025; 99285; Q9967

== ENCOUNTER 2021-01-20 10:42 | Emergency (ER) | payer OTHER ==
[~2021-01-20] VITALS: Ht 185.4 cm; Wt 106.3 kg
--- NOTE | 2021-01-20 11:30 | RAD ---
Single view of the chest. 01/20/2021 10:59 AM Indication: Reason: CP, COVID POSITIVE Comparison: Chest radiograph March 06, 2020 Findings: There is no focal consolidation. There is no pleural effusion or pneumothorax. The cardiome diastinal silhouette and pulmonary vasculature are within normal limits. No acute osseous abnormaliti es are seen. Impression: No evidence of acute cardiopulmonary process. Electronically signed by: Gerard Sabillon MD (01/20/2021 11:28 AM) [id number]
--- NOTE | 2021-01-20 11:42 | PHYS DOC ---
Past History Past Medical History: GERD, Other Additional Past Medical Histor: pericarditis, bradycardia, MRSA, low iron levels, low vit d Past Surgical History: No Surgical History Smoking: Non-smoker Alcohol Use: None Drug Use: None General Adult EDM: Chief Complaint: CHEST PAIN HPI: HPI: 25-year-old female presents with shortness of breath and chest pain. The patient has had COVID-19 symptoms for about 7 days but was diagnosed +2 days ago. She comes in today because she was feeling more short of breath and had a central chest discomfort that radiated through to between her shoulder blades. She has a congenital cardiac condition and wanted to make sure things were okay. She has no other complaints this time. Review of Systems: Review of Systems: Constitutional: Denies fever or chills Eyes: Denies change in visual acuity HENT: Denies nasal congestion or sore throat Respiratory: shortness of breath Cardiovascular: Chest pain GI: Denies abdominal pain, nausea, vomiting, bloody stools or diarrhea : Denies dysuria Musculoskeletal: Denies back pain or joint pain Integument: Denies rash Neurologic: Denies headache, focal weakness or sensory changes Endocrine: Denies polyuria or polydipsia Lymphatic: Denies swollen glands Psychiatric: Denies depression or anxiety Allergies: Allergies: Allergies Coded Allergies Type Severity Reaction Last Updated Verified No Known Allergies Allergy Unknown 11/18/20 Yes Physical Exam: PE: Constitutional: Well developed, well nourished, obese, no acute distress, non- toxic appearance. [] HENT: Normocephalic, atraumatic, bilateral external ears normal, oropharynx moist, no oral exudates, nose normal. [] Eyes: PERRLA, EOMI, conjunctiva normal, no discharge. [] Neck: Normal range of motion, no tenderness, supple, no stridor. [] Cardiovascular: Heart rate regular rhythm, no murmur [] Lungs & Thorax: Bilateral breath sounds clear to auscultation [] Abdomen: Bowel sounds normal, soft, no tenderness, no masses, no pulsatile masses. [] Skin: Warm, dry, no erythema, no rash. [] Back: No tenderness, no CVA tenderness. [] Extremities: No tenderness, no cyanosis, no clubbing, ROM intact, no edema. [] Neurologic: Alert and oriented X 3, normal motor function, normal sensory function, no focal deficits noted. [] Psychologic: Affect normal, judgement normal, mood normal. [] Current Patient Data: Vital Signs: Vital Signs Date Time Temp Pulse Resp B/P (MAP) Pulse Ox O2 Delivery O2 Flow Rate FiO2 01/20/21 10:59 98.1 113 22 119/80 (93) 99 Room Air EKG: EKG: Sinus rhythm, rate 102, normal axis, no ST elevation or depression. [] Radiology/Procedures: Radiology/Procedures: [] Impressions: Single view of the chest. 01/20/2021 10:59 AM Indication: Reason: CP, COVID POSITIVE Comparison: Chest radiograph March 06, 2020 Findings: There is no focal consolidation. There is no pleural effusion or pneumothorax. The cardiomediastinal silhouette and pulmonary vasculature are within normal limits. No acute osseous abnormalities are seen. Impression: No evidence of acute cardiopulmonary process. Electronically signed by: Gerard Mckinney MD (01/20/2021 11:28 AM) [id number] DICTATED AND SIGNED BY: GERARD MCKINNEY MD DATE: 01/20/21 1127 CC: SHELLY WHITTEN DO; BETHANIE PUENTE BEADER TENDER-BC ~MTH0 0 Heart Score: C/O Chest Pain: Yes HEART Score for Chest Pain: HEART Score for Chest Pain Response (Comments) Value History Slighlty/Non-Suspicious 0 ECG Normal 0 Age < 45 0 Risk Factors 1 or 2 Risk Factors 1 Troponin < Normal Limit 0 Total 1 Risk Factors: Risk Factors: DM, Current or recent (<one month) smoker, HTN, HLP, family history of CAD, obesity. Risk Scores: Score 0 - 3: 2.5% MACE over next 6 weeks - Discharge Home Score 4 - 6: 20.3% MACE over next 6 weeks - Admit for Clinical Observation Score 7 - 10: 72.7% MACE over next 6 weeks - Early Invasive Strategies Course & Med Decision Making: Course & Med Decision Making Pertinent Labs and Imaging studies reviewed. (See chart for details) The patient's EKG is unremarkable. Her labs are unremarkable. Her troponin is negative. Her chest x-ray is negative for acute findings. The patient likely struggling with normal symptoms of COVID-19. She is stable for discharge at this time. [] Dragon Disclaimer: Dragon Disclaimer: This electronic medical record was generated, in whole or in part, using a voice recognition dictation system. Departure Departure: Impression: Primary Impression: Chest pain Qualified Codes: R07.9 - Chest pain, unspecified Additional Impression: COVID-19 Disposition: 01 HOME / SELF CARE / HOMELESS Condition: STABLE Referrals: BETHANIE PUENTE (PCP) Patient Instructions: Chest Pain (Nonspecific), [id number] Additional Instructions: You have been tested for or diagnosed with COVID-19. It is an infection caused by a new type of coronavirus. COVID-19 will cause cold-like or mild flu symptoms in most. It can cause more severe symptoms like problems breathing in some. There is no treatment for COVID-19. The body will clear the infection over time. Self-care will help to ease discomfort. Steps to Take: Self-Care Rest as needed. Healthy habits may help you feel better. Steps include: Choose healthy foods including fruits and vegetables. Drink water throughout the day. Get plenty of sleep each night. If you smoke, try to quit. It may ease breathing. Avoid alcohol. Keep Others Healthy The virus can spread to others. Droplets are released every time you sneeze or cough. The droplets can get into the mouth, nose, or eyes of people near you and lead to infection. To lower the chances of spreading COVID-19 to others: Stay at home until your doctor has said it is safe to leave. If you tested positive this will mean staying isolated until both of the following are true: At least 7 days have passed since the start of illness. You are free of fever for at least 72 hours without the use of medicine. During this time: - Avoid public areas, events, or transportation. Do not return to work or school until your doctor has said it is safe to do so. - Call ahead if you need to go to a medical center. Let them know you may have COVID-19. It will help them guide you where to go. They may also ask you to wear a facemask when you come to the office. - If you call for emergency medical services, let them know you may have COVID- 19. While at home: - Try to avoid close contact with others. Stay about 6 feet away. - If possible, spend most of your time in a separate room from others. - Use a face mask if you will be in close contact with others such as sharing a room or vehicle. - Have someone wipe down common surfaces in the home. Use household industrial maintenance tech every day on areas like doorknobs, counters, or sinks. - Cough or sneeze into a tissue. Throw the tissue away right after use. If a tissue is not available, cough or sneeze into your elbow. - Wash your hands often. Wash them after sneezing or coughing. Use soap and water and wash for at least 20 seconds. Alcohol based hand hand fur cleaner can be used if soap and water is not available. - Do not prepare food for others. Avoid sharing personal items like forks, spoons, or toothbrushes. - Avoid close contact with pets while you are sick. There is no evidence of the virus passing to pets. This is a safety step until more is known about this virus. Isolation can be frustrating. Social interaction can help. Keep in touch with friends and family through phone and tech options. You can still interact with others in your home, just keep a safe distance of about 6 feet. Follow-up: Your doctors office will check in with you to see if there are any changes in your health. You may be asked to keep track of symptoms to share with them. They will also let you know when you are clear to be in public again. Problems to Look Out For: Contact your doctor if your recovery is not going as you expect. Get emergency care if you have problems such as: - Trouble breathing - Nonstop chest pain or pressure - Changes in awareness, confusion, or problems waking - Lips or face have bluish color - Worsening of symptoms If you think you have an emergency, call for emergency medical services right away. As taken from [facility] SHELLY WHITTEN DO Jan 20, 2021 11:42
[2021-01-20 12:55] LABS: BASO % 1 % (0-3); EOS % 0 % (0-3); HEMATOCRIT 41.1 % (36.0-47.0); HEMOGLOBIN 13.7 g/dL (12.0-15.5); LYMPH # 1.2 x10^3/uL (1.0-4.8); LYMPH % 31 % (24-48); MEAN CORPUSCULAR HEMOGLOBIN 31 pg (25-35); MEAN CORPUSCULAR HGB CONC 34 g/dL (31-37); MEAN CORPUSCULAR VOLUME 93 fL (79-100); MONO # 0.4 x10^3/uL (0.0-1.1); MONO % 10 % (0-9); NEUT # 2.2 x10^3uL (1.8-7.7); NEUT % 58 % (31-73); PLATELET COUNT 197 x10^3/uL (140-400); RED BLOOD COUNT 4.41 x10^6/uL (3.50-5.40); RED CELL DISTRIBUTION WIDTH 13.8 % (11.5-14.5); WHITE BLOOD COUNT 3.8 x10^3/uL (4.0-11.0)
[2021-01-20 13:05] LABS: BARBITURATES NEG (NEG); BENZODIAZEPINES NEG (NEG); CANNABINOIDS NEG (NEG); COCAINE NEG (NEG); METHADONE NEG (NEG); OPIATES NEG (NEG); PHENCYCLIDINE NEG (NEG)
[2021-01-20 13:08] LABS: CALCIUM 7.9 mg/dL (8.5-10.1); CREATININE 0.7 mg/dL (0.6-1.0); GFR 102.8; POTASSIUM 3.9 mmol/L (3.5-5.1)
[2021-01-20 13:14] LABS: ALBUMIN 3.2 g/dL (3.4-5.0); ALBUMIN/GLOBULIN RATIO 0.9 (1.0-1.7); AMPHETAMINE/METHAMPHETAMINE NEG (NEG); TOTAL BILIRUBIN 0.4 mg/dL (0.2-1.0); TOTAL PROTEIN 6.7 g/dL (6.4-8.2)
[2021-01-20] MEDS ORDERED: IV NORMAL SALINE 1,000ML 1,000 ML IV ONE (13:30)
[2021-01-20 15:00] VITALS: BP 112/70
[2021-01-20 15:11] LABS: BILIRUBIN,URINE NEG (NEG); CLARITY,URINE CLEAR; COLOR,URINE YELLOW; GLUCOSE,URINE NEG (NEG); NITRITE,URINE NEG (NEG); SQUAMOUS EPITHELIAL CELL,UR FEW /LPF; UROBILINOGEN,URINE 0.2 mg/dL (0.2 mg/dL)
[2021-01-20 15:12] LABS: BACTERIA,URINE 0 /HPF (0-FEW); RBC,URINE 0 /HPF (0-2); WBC,URINE 0 /HPF (0-4)
--- NOTE | 2021-01-20 17:16 | EKG ---
[address] [address] Test Date: 2021-01-20 Test Time: 11:01:25 Pat Name: FRANDY LOWERY Department: Room: Gender: F Computer Instructor: ELIE : 1995 Requested By: SHELLY WHITTEN Order Number: [id number] Reading MD: Measurements Intervals [place] Rate: 102 P: 77 [place]: 164 QRS: 7 QRSD: 80 T: -47 QT: 304 QTc: 400 Interpretive Statements SINUS TACHYCARDIA T ABNORMALITY IN INFERIOR LEADS ABNORMAL ECG RI6.02 No previous ECG available for comparison
== END 2021-01-20 15:05 | disposition home or self-care (01) ==
LOC: ER 10:42
DX: U07.1 COVID-19 (principal); R07.89 Other chest pain; K21.9 Gastro-esophageal reflux disease without esophagitis
CPT/HCPCS: 36415; 71045; 80053; 80307; 81001; 84484; 85025; 93005; 99285; J7030

== ENCOUNTER 2021-02-18 13:17 | Emergency (ER) | payer OTHER ==
[~2021-02-18] VITALS: Ht 185.4 cm; Wt 104.5 kg
[2021-02-18 15:10] LABS: ANION GAP 9 (6-14); BASO % 1 % (0-3); BLOOD UREA NITROGEN 8 mg/dL (7-20); BUN/CREATININE RATIO 11 (6-20); CALCIUM 8.5 mg/dL (8.5-10.1); CARBON DIOXIDE 28 mmol/L (21-32); CHLORIDE 105 mmol/L (98-107); CREATININE 0.7 mg/dL (0.6-1.0); EOS # 0.1 x10^3/uL (0.0-0.7); EOS % 2 % (0-3); GFR 102.8; GLUCOSE 86 mg/dL (70-99); HEMATOCRIT 37.4 % (36.0-47.0); HEMOGLOBIN 12.2 g/dL (12.0-15.5); LYMPH # 1.6 x10^3/uL (1.0-4.8); LYMPH % 28 % (24-48); MEAN CORPUSCULAR HEMOGLOBIN 31 pg (25-35); MEAN CORPUSCULAR HGB CONC 33 g/dL (31-37); MEAN CORPUSCULAR VOLUME 94 fL (79-100); MONO # 0.4 x10^3/uL (0.0-1.1); MONO % 7 % (0-9); NEUT # 3.6 x10^3uL (1.8-7.7); NEUT % 63 % (31-73); PLATELET COUNT 261 x10^3/uL (140-400); POTASSIUM 3.8 mmol/L (3.5-5.1); RED BLOOD COUNT 3.96 x10^6/uL (3.50-5.40); RED CELL DISTRIBUTION WIDTH 13.5 % (11.5-14.5); SODIUM 142 mmol/L (136-145); WHITE BLOOD COUNT 5.8 x10^3/uL (4.0-11.0)
[2021-02-18] MEDS ORDERED: CONTRAST GIVEN. MC PRN (15:15)
[2021-02-18] MEDS ORDERED: IOHEXOL 350 MG/ML 100 ML VIAL. IV ONE (15:15)
[2021-02-18 15:27] LABS: BARBITURATES NEG (NEG); BENZODIAZEPINES NEG (NEG); CANNABINOIDS NEG (NEG); COCAINE NEG (NEG); METHADONE NEG (NEG); OPIATES NEG (NEG); PHENCYCLIDINE NEG (NEG)
[2021-02-18 15:31] LABS: AMPHETAMINE/METHAMPHETAMINE NEG (NEG)
--- NOTE | 2021-02-18 15:34 | EKG ---
[address] [address] Test Date: 2021-02-18 Test Time: 14:20:53 Pat Name: FRANDY LOWERY Department: Room: Gender: F Electronics Technology Department Chair: DOMINGUEZ : 1995 Requested By: KAYLYN OBREGON Order Number: [id number] Reading MD: Measurements Intervals [place] Rate: 63 P: 31 [place]: 172 QRS: 6 QRSD: 86 T: -15 QT: 372 QTc: 384 Interpretive Statements SINUS RHYTHM T ABNORMALITY IN INFERIOR LEADS ABNORMAL ECG RI6.02 No previous ECG available for comparison
[2021-02-18] MEDS ORDERED: FAMOTIDINE 20 MG/2 ML VIAL IVP ONE (15:45)
[2021-02-18] MEDS ORDERED: diphenhydrAMINE 50 MG/ML VIAL IVP ONE (15:45)
[2021-02-18] MEDS ORDERED: methylPREDNISolone SOD SUCC PF 125 MG/2 ML VIAL. IV ONE (15:45)
[2021-02-18 15:51] LABS: ALBUMIN 3.4 g/dL (3.4-5.0); ALBUMIN/GLOBULIN RATIO 0.9 (1.0-1.7); ALK PHOS 70 U/L (46-116); ALT (SGPT) 18 U/L (14-59); AST (SGOT) 14 U/L (15-37); MAGNESIUM 2.1 mg/dL (1.8-2.4); TOTAL BILIRUBIN 0.9 mg/dL (0.2-1.0)
[2021-02-18 15:57] LABS: CLARITY,URINE CLEAR; COLOR,URINE YELLOW
[2021-02-18 15:58] LABS: BACTERIA,URINE 0 /HPF (0-FEW); BILIRUBIN,URINE NEG (NEG); GLUCOSE,URINE NEG (NEG); NITRITE,URINE NEG (NEG); RBC,URINE 20-40 /HPF (0-2); SQUAMOUS EPITHELIAL CELL,UR MANY /LPF; UROBILINOGEN,URINE 0.2 mg/dL (0.2 mg/dL); WBC,URINE 0 /HPF (0-4)
--- NOTE | 2021-02-18 16:12 | RAD ---
Exam: CT head. CTA head and neck INDICATION: Blurry vision TECHNIQUE: Sequential axial images through the head were obtained without the administration of IV co ntrast. Sequential axial images through the head and neck were obtained following the administration of 75 mL of Isovue-370. 3-D reformatted images were reconstructed from the axial data and reviewed. Exposure: One or more of the following in the visualized dose reduction techniques were utilized for this examination: 1. Automated exposure control 2. Adjustment of the MA and/or KV according to patient size 3. Use of iterative of reconstructive technique Comparisons: None FINDINGS: Head: No focal parenchymal lesion or hemorrhage is identified. There is no midline shift or sulcal effaceme nt. No acute vascular territory infarction is identified. Crowley-white distinction is preserved. The ventricular system is within normal limits without compression hydrocephalus. The basal cisterns are well maintained. The visualized portions of the paranasal sinuses and mastoid air cells are well-pneumatized. No acute fractures. CTA NECK: Visualized portions of thoracic aorta are unremarkable. Standard three-vessel aortic arch anatomy. Right common carotid artery is patent without evidence of stenosis, occlusion or aneurysm. Cervical s egment of the right internal carotid artery is patent without evidence of stenosis, occlusion or aneu rysm. Left common carotid artery is patent without evidence of stenosis, occlusion or aneurysm. Cervical se gment of the left internal carotid artery is patent without evidence of stenosis, occlusion or aneury sm. Right vertebral artery is patent to the basilar confluence without evidence of stenosis, occlusion or aneurysm. Left vertebral artery is patent to the basilar confluence without evidence of stenosis, occlusion or aneurysm. Visualized paraspinal soft tissues are unremarkable. CTA HEAD: Intracranial segments of the right internal carotid artery are patent without evidence of stenosis, o cclusion or aneurysm. Right MCA is patent. Right LUCAS is patent. Intracranial segments of the left internal carotid artery are patent without evidence of stenosis, oc clusion or aneurysm. Left MCA is patent. Left LUCAS is patent. Basilar artery is patent without evidence of stenosis, occlusion or aneurysm. car rental manager are patent bilater ally. IMPRESSION: 1. No acute intracranial abnormality. 2. Patent intracranial cervical arterial vasculature without evidence of stenosis, occlusion or aneu rysm. Electronically signed by: Davian Spain MD (02/18/2021 4:09 PM) [facility]
--- NOTE | 2021-02-18 18:00 | PHYS DOC ---
Past History Past Medical History: GERD, Other Additional Past Medical Histor: pericarditis, bradycardia, MRSA, low iron levels, low vit d; blood clot RLE Past Surgical History: No Surgical History Smoking: Non-smoker Alcohol Use: None Drug Use: None Adult General Chief Complaint Chief Complaint: DIZZY/LIGHT HEADED HPI HPI Patient is a 25-year-old female patient with history of pericarditis, low vitamin D, anemia, bradycardia, superficial blood clot to the right lower extremity 6 months ago not on blood thinners but follows up with a vascular surgeon as well as systems software developer, who presents to the ED today complaining of dizziness described as "vision going out" to bilateral eyes, symptoms have been going on intermittently for 3 days. Denies any exacerbating or relieving factors to her symptoms. Denies any chest pain, shortness of breath, fever, coughing or congestion. She states she was diagnosed with COVID-19 on January 16. Denies any chest pain or shortness of breath. Review of Systems Review of Systems Constitutional: Denies fever or chills [] Eyes: Denies change in visual acuity, redness, or eye pain [] HENT: Denies nasal congestion or sore throat [] Respiratory: Denies cough or shortness of breath [] Cardiovascular: No additional information not addressed in HPI [] GI: Denies abdominal pain, nausea, vomiting, bloody stools or diarrhea [] : Denies dysuria or hematuria [] Musculoskeletal: Denies back pain or joint pain [] Integument: Denies rash or skin lesions [] Neurologic: Reports dizziness. Denies headache, focal weakness or sensory changes [] All other systems were reviewed and found to be within normal limits, except as documented in this note. Current Medications Current Medications Current Medications Medications (Trade) Dose Ordered Sig/Lakia Start Time Stop Time Status Last Admin Dose Admin Diphenhydramine HCl (Benadryl) 25 mg 1X ONCE 02/18/21 15:45 02/18/21 15:46 DC 02/18/21 15:42 25 MG Famotidine (Pepcid Vial) 20 mg 1X ONCE 02/18/21 15:45 02/18/21 15:46 DC 02/18/21 15:42 20 MG Info (Do NOT chart on this entry -- for MONITORING) 1 each PRN DAILY PRN 02/18/21 15:15 02/20/21 15:14 Iohexol (Omnipaque 350 Mg/ml) 100 ml 1X ONCE 02/18/21 15:15 02/18/21 15:16 DC 02/18/21 15:17 100 ML Methylprednisolone Sodium Succinate (SOLU-Medrol 125MG VIAL) 125 mg 1X ONCE 02/18/21 15:45 02/18/21 15:46 DC 02/18/21 15:40 125 MG Allergies Allergies Allergies Coded Allergies Type Severity Reaction Last Updated Verified No Known Allergies Allergy Unknown 02/18/21 Yes Physical Exam Physical Exam Constitutional: Well developed, well nourished, no acute distress, non-toxic appearance. [] HENT: Normocephalic, atraumatic, bilateral external ears normal, oropharynx moist, no oral exudates, nose normal. [] Eyes: PERRLA, EOMI, conjunctiva normal, no discharge. [] Neck: Normal range of motion, no tenderness, supple, no stridor. [] Cardiovascular:Heart rate regular rhythm, no murmur [] Lungs & Thorax: Bilateral breath sounds clear to auscultation [] Abdomen: Bowel sounds normal, soft, no tenderness, no masses, no pulsatile masses. [] Skin: Warm, dry, no erythema, no rash. [] Back: No tenderness, no CVA tenderness. [] Extremities: No tenderness, no cyanosis, no clubbing, ROM intact, no edema. [] Neurologic: Alert and oriented X 3, normal motor function, normal sensory function, no focal deficits noted. Cranial nerves II through XII intact Psychologic: Affect normal, judgement normal, mood normal. [] Current Patient Data Vital Signs Vital Signs Date Time Temp Pulse Resp B/P (MAP) Pulse Ox O2 Delivery O2 Flow Rate FiO2 02/18/21 17:30 58 17 127/74 (91) 99 Room Air 02/18/21 13:34 98.6 Lab Results Laboratory Tests Test 02/18/21 14:33 02/18/21 14:58 02/18/21 15:04 White Blood Count 5.8 x10^3/uL (4.0-11.0) Red Blood Count 3.96 x10^6/uL (3.50-5.40) Hemoglobin 12.2 g/dL (12.0-15.5) Hematocrit 37.4 % (36.0-47.0) Mean Corpuscular Volume 94 fL (79-100) Mean Corpuscular Hemoglobin 31 pg (25-35) Mean Corpuscular Hemoglobin Concent 33 g/dL (31-37) Red Cell Distribution Width 13.5 % (11.5-14.5) Platelet Count 261 x10^3/uL (140-400) Neutrophils (%) (Auto) 63 % (31-73) Lymphocytes (%) (Auto) 28 % (24-48) Monocytes (%) (Auto) 7 % (0-9) Eosinophils (%) (Auto) 2 % (0-3) Basophils (%) (Auto) 1 % (0-3) Neutrophils # (Auto) 3.6 x10^3uL (1.8-7.7) Lymphocytes # (Auto) 1.6 x10^3/uL (1.0-4.8) Monocytes # (Auto) 0.4 x10^3/uL (0.0-1.1) Eosinophils # (Auto) 0.1 x10^3/uL (0.0-0.7) Basophils # (Auto) 0.0 x10^3/uL (0.0-0.2) Prothrombin Time 10.2 SEC (9.4-11.4) Prothrombin Time INR 1.0 (0.9-1.1) Activated Partial Thromboplast Time 26 SEC (23-33) Sodium Level 142 mmol/L (136-145) Potassium Level 3.8 mmol/L (3.5-5.1) Chloride Level 105 mmol/L (98-107) Carbon Dioxide Level 28 mmol/L (21-32) Anion Gap 9 (6-14) Blood Urea Nitrogen 8 mg/dL (7-20) Creatinine 0.7 mg/dL (0.6-1.0) Estimated GFR (Cockcroft-Gault) 102.8 BUN/Creatinine Ratio 11 (6-20) Glucose Level 86 mg/dL (70-99) Calcium Level 8.5 mg/dL (8.5-10.1) Magnesium Level 2.1 mg/dL (1.8-2.4) Total Bilirubin 0.9 mg/dL (0.2-1.0) Aspartate Amino Transferase (AST) 14 U/L (15-37) L Alanine Aminotransferase (ALT) 18 U/L (14-59) Alkaline Phosphatase 70 U/L (46-116) Creatine Kinase 32 U/L (26-192) Creatine Kinase MB (Mass) < 0.5 ng/mL (0.0-3.6) Creatine Kinase MB Relative Index 1.6 % (0-4) Troponin I High Sensitivity 6 ng/L (4-50) AF-Rtm-L-Type Natriuretic Peptide 94 pg/mL (0-124) Total Protein 7.0 g/dL (6.4-8.2) Albumin 3.4 g/dL (3.4-5.0) Albumin/Globulin Ratio 0.9 (1.0-1.7) L Urine Collection Type Clean catch Urine Color Yellow Urine Clarity Clear Urine pH 7.5 Urine Specific [place] 1.020 Urine Protein Neg (NEG-TRACE) Urine Glucose (UA) Neg mg/dL (NEG) Urine Ketones (Stick) Neg mg/dL (NEG) Urine Blood Large (NEG) Urine Nitrite Neg (NEG) Urine Bilirubin Neg (NEG) Urine Urobilinogen Dipstick 0.2 mg/dL (0.2 mg/dL) Urine Leukocyte Esterase Neg (NEG) Urine RBC 20-40 /HPF (0-2) Urine WBC 0 /HPF (0-4) Urine Squamous Epithelial Cells Many /LPF Urine Bacteria 0 /HPF (0-FEW) Urine Opiates Screen Neg (NEG) Urine Methadone Screen Neg (NEG) Urine Barbiturates Neg (NEG) Urine Phencyclidine Screen Neg (NEG) Urine Amphetamine/Methamphetamine Neg (NEG) Urine Benzodiazepines Screen Neg (NEG) Urine Cocaine Screen Neg (NEG) Urine Cannabinoids Screen Neg (NEG) Urine Ethyl Alcohol Neg (NEG) POC Urine HCG, Qualitative hcg negative (Negative) EKG EKG [address] Gomez sinus rhythm heart rate 63 no STEMI [] Radiology/Procedures Radiology/Procedures []PROCEDURE: CT ANGIOGRAPHY HEAD AND NECK Exam: CT head. CTA head and neck INDICATION: Blurry vision TECHNIQUE: Sequential axial images through the head were obtained without the administration of IV contrast. Sequential axial images through the head and neck were obtained following the administration of 75 mL of Isovue-370. 3-D reformatted images were reconstructed from the axial data and reviewed. Exposure: One or more of the following in the visualized dose reduction techniques were utilized for this examination: 1. Automated exposure control 2. Adjustment of the MA and/or KV according to patient size 3. Use of iterative of reconstructive technique Comparisons: None FINDINGS: Head: No focal parenchymal lesion or hemorrhage is identified. There is no midline shift or sulcal effacement. No acute vascular territory infarction is identified. Crowley-white distinction is preserved. The ventricular system is within normal limits without compression hydrocephalus. The basal cisterns are well maintained. The visualized portions of the paranasal sinuses and mastoid air cells are well- pneumatized. No acute fractures. CTA NECK: Visualized portions of thoracic aorta are unremarkable. Standard three-vessel aortic arch anatomy. Right common carotid artery is patent without evidence of stenosis, occlusion or aneurysm. Cervical segment of the right internal carotid artery is patent without evidence of stenosis, occlusion or aneurysm. Left common carotid artery is patent without evidence of stenosis, occlusion or aneurysm. Cervical segment of the left internal carotid artery is patent without evidence of stenosis, occlusion or aneurysm. Right vertebral artery is patent to the basilar confluence without evidence of stenosis, occlusion or aneurysm. Left vertebral artery is patent to the basilar confluence without evidence of stenosis, occlusion or aneurysm. Visualized paraspinal soft tissues are unremarkable. CTA HEAD: Intracranial segments of the right internal carotid artery are patent without evidence of stenosis, occlusion or aneurysm. Right MCA is patent. Right LUCAS is patent. Intracranial segments of the left internal carotid artery are patent without evidence of stenosis, occlusion or aneurysm. Left MCA is patent. Left LUCAS is patent. Basilar artery is patent without evidence of stenosis, occlusion or aneurysm. strike warfare/missile systems officer are patent bilaterally. IMPRESSION: 1. No acute intracranial abnormality. 2. Patent intracranial cervical arterial vasculature without evidence of stenosis, occlusion or aneurysm. Electronically signed by: Davian Bay MD (02/18/2021 4:09 PM) [facility] DICTATED AND SIGNED BY: DAVIAN BAY MD DATE: 02/18/21 1601 CC: KAYLYN OBREGON PLANT OPERATIONS WORKER; BETHANIE PUENTE DINKEY ENGINE FIRER-BC ~MTH0 0 Heart Score C/O Chest Pain: N/A Risk Factors: Risk Factors: DM, Current or recent (<one month) smoker, HTN, HLP, family history of CAD, obesity. Risk Scores: Risk Factors: DM, Current or recent (<one month) smoker, HTN, HLP, family history of CAD, obesity. Course & Med Decision Making Course & Med Decision Making Pertinent Labs and Imaging studies reviewed. (See chart for details) This is a 25-year-old female patient presented to the ED today complaining of dizziness intermittently for [address] of the head, CT angio head and neck are negative for any acute findings. Stroke scale is negative, labs are negative. Vital signs are stable. Patient was discharged home. She has a systems software developer, [id number], PCP. Instructed to follow-up with them. Instructed to return to the ED at any point symptoms worsen Dragon Disclaimer Dragon Disclaimer This electronic medical record was generated, in whole or in part, using a voice recognition dictation system. Departure Departure: Impression: Primary Impression: Dizziness Disposition: HOME / SELF CARE / HOMELESS Condition: STABLE Referrals: BETHANIE PUENTE (PCP) follow up next week Patient Instructions: Dizziness, [id number] Additional Instructions: You were evaluated in the emergency room. You had a negative CT of the head and neck are negative for any acute findings, your work-up is negative for any acute findings. Please follow-up with your primary care doctor, systems software developer, and vascular surgeon next week. Come back to the ED at any point symptoms worsen KAYLYN OBREGON PLANT OPERATIONS WORKER Feb 18, 2021 17:59
[2021-02-18 18:34] VITALS: BP 118/65
== END 2021-02-18 18:26 | disposition home or self-care (01) ==
LOC: ER 13:17
DX: R42 Dizziness and giddiness (principal); K21.9 Gastro-esophageal reflux disease without esophagitis
CPT/HCPCS: 36415; 70450; 70496; 70498; 80053; 80307; 81001; 81025; 82553; 83735; 83880; 84443; 84484; 85025; 85610; 85730; 93005; 96374; 96375; 99285; J1200; J2930; J3490; Q9967

== ENCOUNTER 2021-03-28 22:18 | Emergency (ER) | payer SELFPAY ==
[~2021-03-28] VITALS: Ht 185.4 cm; Wt 104.5 kg
--- NOTE | 2021-03-28 22:24 | PHYS DOC ---
Past History Past Medical History: GERD, Other Additional Past Medical Histor: pericarditis, bradycardia, MRSA, low iron levels, low vit d; blood clot RLE Past Surgical History: No Surgical History Smoking: Non-smoker Alcohol Use: None Drug Use: None General Adult HPI: HPI: ". I am having bad abdomen pain... .. I ve had it off and on a month.. just seems worse tonight..>" Patient is a 25 year old female who presents with above hx and complaints of abdomen pain., . Pain is located primarily in left and upper abdomen calderon. Patient currently rates her pain 5 out of 10. Pain is at worst pain 9 out of 10. Patient has no history of trauma. No history of bad food intake. Did eat chips for dinner tonight. Has never had a colonoscopy. Has never been . Denies any history of STDs. For lifetime sex partners. No recent travel. No severe ill contacts. No vaginal discharge. There is a family history of kidney stones and ovarian cyst. Patient does not currently follow-up with primary care. Review of Systems: Review of Systems: Constitutional: Denies fever or chills Eyes: Denies change in visual acuity HENT: Denies nasal congestion or sore throat Respiratory: Denies cough or shortness of breath Cardiovascular: Denies chest pain or edema GI: Complains of abdominal pain, nausea,. Denies vomiting, bloody stools or diarrhea : Denies dysuria Musculoskeletal: Denies back pain or joint pain Integument: Denies rash Neurologic: Denies headache, focal weakness or sensory changes Endocrine: Denies polyuria or polydipsia Lymphatic: Denies swollen glands Psychiatric: Denies depression or anxiety Family History: Family History: Ovarian cyst and kidney stones Current Medications: Current Meds: See nursing for home meds Allergies: Allergies: Allergies Coded Allergies Type Severity Reaction Last Updated Verified No Known Allergies Allergy Unknown 02/18/21 Yes Physical Exam: PE: Constitutional: well nourished, no acute distress, non-toxic appearance. [] HENT: Normocephalic, atraumatic, bilateral external ears normal, oropharynx moist, no oral exudates, nose normal. [] Eyes: PERRLA, EOMI, conjunctiva normal, no discharge. [] Neck: Normal range of motion, no tenderness, supple, no stridor. [] Cardiovascular:Heart rate regular rhythm, no murmur [] Lungs & Thorax: Bilateral breath sounds clear to auscultation [] Abdomen: Bowel sounds normal, soft, mild epigastric and left upper quadrant tenderness, no masses, no pulsatile masses. Distended. [] Declines pelvic exam at this time. Skin: Warm, dry, no erythema, no rash. [] Back: No tenderness, no CVA tenderness. [] Extremities: No tenderness, no cyanosis, no clubbing, ROM intact, no edema. [] No Trousseau sign. Neurologic: Alert and oriented X 3, normal motor function, normal sensory functi on, no focal deficits noted. [] Psychologic: Affect anxious, judgement normal, mood normal. [] EKG: EKG: [] Radiology/Procedures: Radiology/Procedures: [][address] [address] IMAGING REPORT Signed PATIENT: FRANDY LOWERY JACCOUNT: [id number] : 1995 LOCATION: ER AGE: 25 SEX: F EXAM STATUS: REG ER ORD. PHYSICIAN: ZACHARY AGUILA MD REASON: Left lower abdomen pain with nausea Omni 240 30ml Oral only PROCEDURE: CT ABD PEL W/ORAL CONTRST ONLY CT ABDOMEN+PELVIS W INDICATION: Left lower abdomen pain with nausea EXAM: Noncontrast CT of the abdomen and pelvis. Coronal and sagittal reformatted images were performed. PQRS compliance statement: One or more of the following individualized dose reduction techniques were utilized for this examination: 1. Automated exposure control 2. Adjustment of the mA and/or kV according to patient size 3. Use of iterative reconstruction technique COMPARISON: 12/25/2019 FINDINGS: No free air, free fluid, or fluid collection. Lower chest: The visualized lower lungs are aerated. No pleural or pericardial effusion. ABDOMEN: Liver: The noncontrast liver is homogeneous in attenuation. Gallbladder and biliary: Normal gallbladder without radiopaque stone. Normal caliber bile ducts. Spleen: Normal spleen. Pancreas: The noncontrast pancreas is homogeneous in attenuation without peripancreatic inflammatory changes. Adrenal glands: Normal adrenal glands. Kidneys and ureters: No opaque urinary calculi. Normal kidneys and ureters. GI tract: The stomach is decompressed and poorly evaluated. Normal caliber small bowel and colon. Normal appendix. Vascular structures: Normal caliber abdominal aorta. Lymph nodes: No lymphadenopathy in the abdomen or pelvis. PELVIS: Genitourinary system: Normal bladder. Uterus is present SKELETAL STRUCTURES AND SOFT TISSUES: Degenerative changes of the spine. IMPRESSION: No acute findings. Electronically signed by: Joseph Agrawal MD (03/29/2021 1:05 AM) [facility] DICTATED AND SIGNED BY: JOSEPH AGRAWAL MD DATE: 03/29/21100 CC: ZACHARY AGUILA MD; PCP,NO ~MTH0 [address] [place] [address] IMAGING REPORT Signed PATIENT: FRANDY LOWERY JACCOUNT: [id number] : 1995 LOCATION: ER AGE: 25 SEX: F EXAM STATUS: REG ER ORD. PHYSICIAN: ZACHARY AGUILA MD REASON: Left lower abdomen pain with nausea PROCEDURE: ACUTE ABDOMEN SERIES EXAM: XR ABDOMEN COMP ACUTE 03/28/2021 11:28 PM CLINICAL INDICATION: Left lower abdominal pain with nausea COMPARISON: CT abdomen pelvis 12/24/2020 TECHNIQUE: AP supine and upright view of the abdomen and PA view of the chest FINDINGS: Bowel gas pattern is nonspecific and nonobstructive. Moderate volume of stool. Heart is normal. Lungs are clear. No pleural effusion or pneumothorax. There is mild dextroscoliosis of the lumbar spine. IMPRESSION: No acute abnormality. Electronically signed by: Suyapa Reagan MD (03/29/2021 12:49 AM) [id number] DICTATED AND SIGNED BY: SUYAPA REAGAN MD DATE: 03/29/2147 CC: ZACHARY AGUILA MD; PCP,NO ~MTH0 0 Heart Score: C/O Chest Pain: N/A Risk Factors: Risk Factors: DM, Current or recent (<one month) smoker, HTN, HLP, family history of CAD, obesity. Risk Scores: Score 0 - 3: 2.5% MACE over next 6 weeks - Discharge Home Score 4 - 6: 20.3% MACE over next 6 weeks - Admit for Clinical Observation Score 7 - 10: 72.7% MACE over next 6 weeks - Early Invasive Strategies Course & Med Decision Making: Course & Med Decision Making Pertinent Labs and Imaging studies reviewed. (See chart for details) Patient is now cleared for diet for the next 2 days. Follow-up primary care. Take Tylenol and ibuprofen for pain. Take [id number] stool softeners or milk of mag if still constipation. Consider follow-up of GI specialist for colonoscopy evaluate for inflammatory bowel disorder. Return if any concerns. Impression: 1. Abdomen pain 2. Constipation [] Dragon Disclaimer: Dragon Disclaimer: This electronic medical record was generated, in whole or in part, using a voice recognition dictation system. Departure Departure: Referrals: PCP,NO (PCP) Anitra Disclaimer This chart was dictated in whole or in part using Voice Recognition software in a busy, high-work load, and often noisy Emergency Department environment. It may contain unintended and wholly unrecognized errors or omissions. ZACHARY AGUILA MD Mar 28, 2021 22:24
[2021-03-28] MEDS ORDERED: IOHEXOL 240 MG/ML 50ML VIAL. ONE (23:22)
[2021-03-28] MEDS ORDERED: IV RINGERS SOLUTION,LACTATED 1,000 ML IV SCH (23:30)
[2021-03-28] MEDS ORDERED: diphenhydrAMINE 50 MG/ML VIAL IVP ONE (23:30)
[2021-03-28] MEDS ORDERED: ONDANSETRON PF 4 MG/2 ML VIAL. IVP ONE (23:30)
[2021-03-28] MEDS ORDERED: methylPREDNISolone SOD SUCC PF 125 MG/2 ML VIAL. IV ONE (23:30)
[2021-03-28] MEDS ORDERED: FAMOTIDINE 20 MG/2 ML VIAL IVP ONE (23:30)
[2021-03-28] MEDS ORDERED: MAGNESIUM HYDROXIDE 2,400 MG/30 ML ORAL.SUSP. PO ONE (23:30)
[2021-03-28 23:35] VITALS: BP 104/69
[2021-03-28 23:35] LABS: BASO % 1 % (0-3); EOS # 0.1 x10^3/uL (0.0-0.7); EOS % 1 % (0-3); HEMATOCRIT 37.9 % (36.0-47.0); HEMOGLOBIN 12.6 g/dL (12.0-15.5); LYMPH # 2.9 x10^3/uL (1.0-4.8); LYMPH % 36 % (24-48); MEAN CORPUSCULAR HEMOGLOBIN 31 pg (25-35); MEAN CORPUSCULAR HGB CONC 33 g/dL (31-37); MEAN CORPUSCULAR VOLUME 94 fL (79-100); MONO # 0.5 x10^3/uL (0.0-1.1); MONO % 6 % (0-9); NEUT # 4.6 x10^3uL (1.8-7.7); NEUT % 56 % (31-73); PLATELET COUNT 256 x10^3/uL (140-400); RED BLOOD COUNT 4.02 x10^6/uL (3.50-5.40); RED CELL DISTRIBUTION WIDTH 13.8 % (11.5-14.5); WHITE BLOOD COUNT 8.1 x10^3/uL (4.0-11.0)
[2021-03-28 23:48] LABS: CALCIUM 8.9 mg/dL (8.5-10.1); CREATININE 0.6 mg/dL (0.6-1.0); GFR 122.8; POTASSIUM 3.6 mmol/L (3.5-5.1)
[2021-03-28 23:49] LABS: CLARITY,URINE CLEAR; COLOR,URINE YELLOW; GLUCOSE,URINE NEG (NEG); NITRITE,URINE NEG (NEG); UROBILINOGEN,URINE 0.2 mg/dL (0.2 mg/dL)
[2021-03-28 23:50] LABS: BACTERIA,URINE FEW /HPF (0-FEW); RBC,URINE OCC /HPF (0-2); SQUAMOUS EPITHELIAL CELL,UR FEW /LPF
[2021-03-28 23:53] LABS: ALBUMIN 3.6 g/dL (3.4-5.0); DIRECT BILIRUBIN 0.1 mg/dL (0.0-0.2); TOTAL BILIRUBIN 0.7 mg/dL (0.2-1.0); TOTAL PROTEIN 7.3 g/dL (6.4-8.2)
[2021-03-28 23:53] LABS: BARBITURATES NEG (NEG); BENZODIAZEPINES NEG (NEG); CANNABINOIDS NEG (NEG); COCAINE NEG (NEG); METHADONE NEG (NEG); OPIATES NEG (NEG); PHENCYCLIDINE NEG (NEG)
[2021-03-29 00:08] LABS: AMPHETAMINE/METHAMPHETAMINE NEG (NEG)
[2021-03-29 00:37] LABS: INFLUENZA A PATIENT NEGATIVE (NEGATIVE); INFLUENZA B PATIENT NEGATIVE (NEGATIVE)
--- NOTE | 2021-03-29 00:51 | RAD ---
EXAM: XR ABDOMEN COMP ACUTE 03/28/2021 11:28 PM CLINICAL INDICATION: Left lower abdominal pain with nausea COMPARISON: CT abdomen pelvis 12/24/2020 TECHNIQUE: AP supine and upright view of the abdomen and PA view of the chest FINDINGS: Bowel gas pattern is nonspecific and nonobstructive. Moderate volume of stool. Heart is no rmal. Lungs are clear. No pleural effusion or pneumothorax. There is mild dextroscoliosis of the lumb ar spine. IMPRESSION: No acute abnormality. Electronically signed by: Suyapa Reagan MD (03/29/2021 12:49 AM) [id number]
--- NOTE | 2021-03-29 01:08 | RAD ---
CT ABDOMEN+PELVIS W INDICATION: Left lower abdomen pain with nausea EXAM: Noncontrast CT of the abdomen and pelvis. Coronal and sagittal reformatted images were perform ed. PQRS compliance statement: One or more of the following individualized dose reduction techniques were utilized for this examinat ion: 1. Automated exposure control 2. Adjustment of the mA and/or kV according to patient size 3. Use of iterative reconstruction technique COMPARISON: 12/25/2019 FINDINGS: No free air, free fluid, or fluid collection. Lower chest: The visualized lower lungs are aerated. No pleural or pericardial effusion. ABDOMEN: Liver: The noncontrast liver is homogeneous in attenuation. Gallbladder and biliary: Normal gallbladder without radiopaque stone. Normal caliber bile ducts. Spleen: Normal spleen. Pancreas: The noncontrast pancreas is homogeneous in attenuation without peripancreatic inflammatory changes. Adrenal glands: Normal adrenal glands. Kidneys and ureters: No opaque urinary calculi. Normal kidneys and ureters. GI tract: The stomach is decompressed and poorly evaluated. Normal caliber small bowel and colon. Nor mal appendix. Vascular structures: Normal caliber abdominal aorta. Lymph nodes: No lymphadenopathy in the abdomen or pelvis. PELVIS: Genitourinary system: Normal bladder. Uterus is present SKELETAL STRUCTURES AND SOFT TISSUES: Degenerative changes of the spine. IMPRESSION: No acute findings. Electronically signed by: Olegario Agrawal MD (03/29/2021 1:05 AM) [facility]
== END 2021-03-29 01:46 | disposition home or self-care (01) ==
LOC: ER 22:18
DX: K59.00 Constipation, unspecified (principal); K21.9 Gastro-esophageal reflux disease without esophagitis; Z20.822 Contact with and (suspected) exposure to COVID-19
CPT/HCPCS: 36415; 74022; 74176; 80048; 80076; 80307; 81001; 81025; 82150; 82550; 83690; 85025; 87428; 87491; 87591; 96361; 96374; 96375; 99285; J1200; J2405; J2930; J3490; J7120

== ENCOUNTER 2021-05-14 17:57 | Emergency (ER) | payer SELFPAY ==
[~2021-05-14] VITALS: Ht 185.4 cm; Wt 104.5 kg
--- NOTE | 2021-05-14 18:17 | PHYS DOC ---
Past History Past Medical History: GERD, Other Additional Past Medical Histor: PERICARDITIS, BLOOD CLOT RLE Past Surgical History: No Surgical History Smoking: Non-smoker Alcohol Use: None Drug Use: None General Adult EDM: Chief Complaint: MULTIPLE COMPLAINTS HPI: HPI: ".. I really short of breath.. hurt all over... I had symptoms starting on 05/02,, but positive Covid test on 05/06.. this is the second time I got Covid.. ".. " I ve never been without it long enough to get vaccinated.. " Patient is a 25 year old female who presents with above hx and multiple system complaints. Patient complaining of dyspnea, myalgia, arthralgia, malaise, subjective fevers, and coughing. Patient has a verified Covid positive test as of at [facility]. Patient has never had COVID vaccination. Patient never completed flu vaccination for this season. Patient never completed Pneumovax. Patient states all the members of her family have had COVID she is last 1 become infected. Patient does have a significant past history of pericarditis, superficial thrombophlebitis, bradycardia, MRSA, anemia with low iron levels, low vitamin D, and anxiety and gastric intestinal issues of gastritis an IBS. Patient is a non-smoker. Denies any illicit drug use. Patient denies any immunosuppression. Review of Systems: Review of Systems: Constitutional: Denies fever or chills Eyes: Denies change in visual acuity HENT: Denies nasal congestion or sore throat Respiratory: Complains of cough and shortness of breath Cardiovascular: Denies chest pain or edema GI: Denies abdominal pain, nausea, vomiting, bloody stools or diarrhea : Denies dysuria Musculoskeletal: Complains of generalized arthralgia and myalgia Integument: Denies rash Neurologic: Denies headache, focal weakness or sensory changes Endocrine: Denies polyuria or polydipsia Lymphatic: Denies swollen glands Psychiatric: Denies depression or anxiety Family History: Family History: DVTs Current Medications: Current Meds: See nursing for home meds Allergies: Allergies: Allergies Coded Allergies Type Severity Reaction Last Updated Verified Iodinated Contrast Media Allergy Severe Anaphylaxis 03/28/21 Yes Iodine and Iodide Containing Produc Allergy Severe Anaphylaxis 03/28/21 Yes Physical Exam: PE: Constitutional: Well developed, well nourished, no acute distress, non-toxic appearance. [] HENT: Normocephalic, atraumatic, bilateral external ears normal, oropharynx moist, no oral exudates, nose normal. [] Eyes: PERRLA, EOMI, conjunctiva normal, no discharge. [] Neck: Normal range of motion, no tenderness, supple, no stridor. [] Cardiovascular:Heart rate regular rhythm, no murmur [] Lungs & Thorax: Bilateral breath sounds equal apex with scattered wheezes on auscultation [] Abdomen: Bowel sounds normal, soft, mild epigastric tenderness, no masses, no pulsatile masses. [] Skin: Warm, dry, no erythema, no rash. [] Back: No tenderness, no CVA tenderness. [] Extremities: No tenderness, no cyanosis, no clubbing, ROM intact, no edema. [No cording appreciated] no psoas sign. Neurologic: Alert and oriented X 3, normal motor function, normal sensory function, no focal deficits noted. [] Psychologic: Affect anxious, judgement normal, mood normal. [] EKG: EKG: My interpretation EKG shows a sinus rhythm at 93 bpm. There is some nonspecific T wave changes in anterior leads and inferior lateral leads. But no findings of acute STEMI of contralateral changes. Time of EKG is 1815 hrs. [] My interpretation second EKG shows a sinus rhythm at 64 bpm. Notes nonspecific T wave changes in anterior leads but no findings acute STEMI of contralateral changes. Time of this EKG is 2311 hrs. Radiology/Procedures: Radiology/Procedures: [][place] [address] IMAGING REPORT Signed PATIENT: FRANDY LOWERY JACCOUNT: [id number] : 1995 LOCATION: ER AGE: 25 SEX: F EXAM STATUS: REG ER ORD. PHYSICIAN: ZACHARY AGUILA MD REASON: cp PROCEDURE: PORTABLE CHEST 1V EXAMINATION: Chest radiograph. VIEWS: Single AP view of the chest COMPARISON: May 21, 2020 INDICATION:25 years, Female, chest pain. FINDINGS: Normal cardiomediastinal silhouette. No focal consolidation. No pleural effusion or pneumothorax. No acute osseous process. IMPRESSION: No acute cardiopulmonary process. Electronically signed by: Tesfaye Min DO (05/14/2021 7:14 PM) [facility] DICTATED AND SIGNED BY: TESFAYE MIN DO DATE: 05/14/211913 CC: ZACHARY AGUILA MD; PCP,NO ~ Heart Score: C/O Chest Pain: No HEART Score for Chest Pain: HEART Score for Chest Pain Response (Comments) Value History Slighlty/Non-Suspicious 0 ECG Normal 0 Age < 45 0 Risk Factors No Risk Factors 0 Total 0 Risk Factors: Risk Factors: DM, Current or recent (<one month) smoker, HTN, HLP, family history of CAD, obesity. Risk Scores: Score 0 - 3: 2.5% MACE over next 6 weeks - Discharge Home Score 4 - 6: 20.3% MACE over next 6 weeks - Admit for Clinical Observation Score 7 - 10: 72.7% MACE over next 6 weeks - Early Invasive Strategies Course & Med Decision Making: Course & Med Decision Making Pertinent Labs and Imaging studies reviewed. (See chart for details) Patient push fluids. Push test ordered foods and juices. Take Tylenol and ibuprofen for discomfort. Use MDI 2 puffs 4 times a day. Follow-up primary care. Return if any concerns. Self isolate. Update flu vaccination and COVID vaccination when well. Self isolate for the next 4 days. Covid precautions. Impression; 1. Covid infection Dx. 04/08- Symptom 04/04 2. Hypokalemia-3.3 3. Dehydration 4. Dyspnea [] Dragon Disclaimer: Dragon Disclaimer: This electronic medical record was generated, in whole or in part, using a voice recognition dictation system. Departure Departure: Referrals: PCP,NO (PCP) Dragon Disclaimer This chart was dictated in whole or in part using Voice Recognition software in a busy, high-work load, and often noisy Emergency Department environment. It may contain unintended and wholly unrecognized errors or omissions. Dragon Disclaimer This chart was dictated in whole or in part using Voice Recognition software in a busy, high-work load, and often noisy Emergency Department environment. It may contain unintended and wholly unrecognized errors or omissions. ZACHARY AGUILA MD May 14, 2021 18:17
[2021-05-14] MEDS ORDERED: IV RINGERS SOLUTION,LACTATED 1,000 ML IV SCH (18:45)
[2021-05-14 19:09] LABS: BASO % 0 % (0-3); EOS % 0 % (0-3); HEMATOCRIT 41.9 % (36.0-47.0); LYMPH # 2.4 x10^3/uL (1.0-4.8); LYMPH % 28 % (24-48); MEAN CORPUSCULAR HEMOGLOBIN 31 pg (25-35); MEAN CORPUSCULAR HGB CONC 33 g/dL (31-37); MEAN CORPUSCULAR VOLUME 94 fL (79-100); MONO # 0.5 x10^3/uL (0.0-1.1); MONO % 6 % (0-9); NEUT # 5.8 x10^3uL (1.8-7.7); NEUT % 66 % (31-73); PLATELET COUNT 283 x10^3/uL (140-400); RED BLOOD COUNT 4.46 x10^6/uL (3.50-5.40); RED CELL DISTRIBUTION WIDTH 13.4 % (11.5-14.5); WHITE BLOOD COUNT 8.8 x10^3/uL (4.0-11.0)
[2021-05-14 19:10] LABS: CALCIUM 9.2 mg/dL (8.5-10.1); CREATININE 0.7 mg/dL (0.6-1.0); GFR 102.8; POTASSIUM 3.3 mmol/L (3.5-5.1)
--- NOTE | 2021-05-14 19:12 | EKG ---
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
--- NOTE | 2021-05-14 19:17 | RAD ---
EXAMINATION: Chest radiograph. VIEWS: Single AP view of the chest COMPARISON: May 21, 2020 INDICATION:25 years, Female, chest pain. FINDINGS: Normal cardiomediastinal silhouette. No focal consolidation. No pleural effusion or pneumothorax. No acute osseous process. IMPRESSION: No acute cardiopulmonary process. Electronically signed by: Tesfaye Friedman DO (05/14/2021 7:14 PM) [facility]
[2021-05-14 19:22] LABS: ALBUMIN 3.7 g/dL (3.4-5.0); DIRECT BILIRUBIN 0.2 mg/dL (0.0-0.2); MAGNESIUM 1.9 mg/dL (1.8-2.4); TOTAL BILIRUBIN 1.1 mg/dL (0.2-1.0); TOTAL PROTEIN 7.3 g/dL (6.4-8.2)
[2021-05-14 19:55] LABS: BARBITURATES NEG (NEG); BENZODIAZEPINES NEG (NEG); CANNABINOIDS NEG (NEG); COCAINE NEG (NEG); METHADONE NEG (NEG); OPIATES NEG (NEG); PHENCYCLIDINE NEG (NEG)
[2021-05-14 19:57] LABS: AMPHETAMINE/METHAMPHETAMINE NEG (NEG)
[2021-05-14 19:58] LABS: BACTERIA,URINE 0 /HPF (0-FEW); CLARITY,URINE CLEAR; COLOR,URINE YELLOW; GLUCOSE,URINE NEG (NEG); NITRITE,URINE NEG (NEG); RBC,URINE 0 /HPF (0-2); SQUAMOUS EPITHELIAL CELL,UR FEW /LPF; UROBILINOGEN,URINE 0.2 mg/dL (0.2 mg/dL); WBC,URINE 0 /HPF (0-4)
--- NOTE | 2021-05-15 00:25 | EKG ---
[address] [address] Test Date: 2021-05-14 Test Time: 23:11:35 Pat Name: FRANDY LOWERY Department: Room: Gender: F [employer] Member: ANGELO : 1995 Requested By: ZACHARY AGUILA Order Number: [id number] Reading MD: Hossein Badillo Measurements Intervals [place] Rate: 64 P: 24 WI: 202 QRS: 7 QRSD: 82 T: -26 QT: 376 QTc: 392 Interpretive Statements SINUS RHYTHM T ABNORMALITY IN ANTERIOR LEADS INFERIOR LEADS ABNORMAL ECG RI6.02 Compared to ECG 05/14/2021 18:15:42 No significant changes Electronically Signed On 05-15-2021 9:00:51 CDT by Hossein Badillo
[2021-05-15] MEDS ORDERED: POTASSIUM CHLORIDE 20 MEQ TABLET.ER. PO ONE (00:30)
[2021-05-15] MEDS ORDERED: POTASSIUM BICARB 20 MEQ EFFERVESCENT TABLET. PO ONE (00:45)
[2021-05-15] MEDS ORDERED: ALBUTEROL SULFATE 8GM INHALER. INH ONE (01:00)
[2021-05-15 01:30] VITALS: BP 117/73
== END 2021-05-15 01:30 | disposition home or self-care (01) ==
LOC: ER 17:57
DX: E87.6 Hypokalemia (principal); E86.0 Dehydration; R10.13 Epigastric pain; K21.9 Gastro-esophageal reflux disease without esophagitis; Z86.16 Personal history of COVID-19; Z91.041 Radiographic dye allergy status
CPT/HCPCS: 36415; 71045; 80048; 80076; 80307; 81001; 82550; 83690; 83735; 83880; 84443; 84484; 85025; 85379; 85610; 85730; 93005; 94640; 96360; 96361; 99285; J7120; 94664